=== PATIENT | female | born 1965 | race Caucasian/White ===

== ENCOUNTER → 2018-09-02 | Outpatient (CLI) | payer MEDICAID ==
--- NOTE | 2018-09-16 11:47 | MR ---
EXAMINATION TYPE: MR knee LT wo con DATE OF EXAM: 09/02/2018 COMPARISON: Outside MRI April 26, 2016. HISTORY: Pain in left knee / Effusion/ primary osteoarthritis /possible bucket-handle medial menisca l tear all per order. Pain and locking and swelling for 2 to 3 years after injury per patient. TECHNIQUE: Multiplanar, multisequence images of the knee is performed without IV contrast. FINDINGS: Exam noted suboptimal due to patient's large body habitus MEDIAL MENISCUS: Anterior horn is intact without tear. Posterior horn is truncated with abnormal vert ical and oblique signal sagittal image 25, findings consistent with full-thickness tear with progress ion from prior MRI LATERAL MENISCUS: Anterior and posterior horns are intact without tear. CRUCIATE LIGAMENTS: The posterior cruciate ligament is intact and unremarkable. Anterior cruciate lig ament shows marked increased signal and thickening versus prior study. COLLATERAL LIGAMENTS: The medial collateral ligament and lateral collateral ligament complex are inta ct and unremarkable. EXTENSOR MECHANISM: Visualized quadriceps and patellar tendons are intact. EFFUSION: There is small to moderate suprapatellar joint effusion increased in size from prior. POPLITEAL CYST: No popliteal/bobby cyst. TRICOMPARTMENT SPACES: Significant degenerative change patellofemoral compartment is redemonstrated a s there is advanced narrowing with mild to moderate spurring and moderate reactive subchondral cystic change. There is moderate narrowing and mild to moderate spurring medial tibiofemoral compartment. CARTILAGE: Full-thickness chondromalacia patella is noted. There is narrowing of articular cartilage medial tibiofemoral compartment BONE MARROW SIGNAL: No focal abnormal marrow signal is appreciated. OTHER: No additional significant abnormality is appreciated. IMPRESSION: 1. Interval progression or or prominent full-thickness tear posterior horn of medial meniscus. 2. Advanced patellofemoral compartment degenerative changes redemonstrated with slight interval progr ession. 3. 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 Small to moderate size suprapatellar joint effusion increased from prior. 5. Moderate degenerative changes medial tibiofemoral compartment increased from prior presumed produc t of osteoarthritis.
== END | disposition home or self-care (01) ==
LOC: RADMRIMAIN 07:34
PROVIDERS: ATTEND Orthopaedic Surgery Sports Medicine
DX: M17.12 Unilateral primary osteoarthritis, left knee (principal); S83.232A Complex tear of medial meniscus, current injury, left knee, initial encounter

== ENCOUNTER → 2020-05-12 | Outpatient (CLI) | payer MEDICAID | END | disposition home or self-care (01) | LOC: LABWHC1 13:23 | PROVIDERS: ATTEND Pediatrics Pediatric Infectious Diseases | DX: Z11.59 Encounter for screening for other viral diseases (principal) | CPT/HCPCS: U0003; C9803 ==

== ENCOUNTER 2020-08-16 01:08 | Emergency (ER) | payer MEDICAID ==
[2020-08-16] MEDS ORDERED: SODIUM CHLORIDE 0.9% 1,000 ML IV STA (01:12)
[2020-08-16] MEDS ORDERED: MORPHINE SULFATE 4 MG/ML SYRINGE IVP STA (01:16)
[2020-08-16] MEDS ORDERED: ONDANSETRON 4 MG/2 ML VIAL IVP STA (01:16)
[2020-08-16 01:18] VITALS: RESP 18; TEMP 98.7
[2020-08-16 01:33] LABS: Basophils # (A) 0.1 k/uL (0-0.2); Basophils % (A) 1 %; Eosinophils # (A) 0.3 k/uL (0-0.7); Eosinophils % (A) 4 %; HCT 43.1 % (34.0-46.0); HGB 13.8 gm/dL (11.4-16.0); Lymphocytes # (A) 1.7 k/uL (1.0-4.8); Lymphocytes % (A) 19 %; MCH 30.7 pg (25.0-35.0); MCV 95.8 fL (80.0-100.0); Mean Platelet Volume 7.6; Monocytes # (A) 0.5 k/uL (0-1.0); Monocytes % (A) 5 %; Neutrophils # (A) 6.3 k/uL (1.3-7.7); Neutrophils % (A) 71 %; Platelet Count 323 k/uL (150-450); RDW 13.3 % (11.5-15.5); WBC 8.9 k/uL (3.8-10.6)
[2020-08-16 01:42] LABS: ALT 14 U/L (4-34); AST 20 U/L (14-36); African American GFR (CKD) >90 (>60 ml/min/1.73 sqM); Albumin 3.8 g/dL (3.5-5.0); Alkaline Phosphatase 81 U/L (38-126); Anion Gap 7 mmol/L; Blood Urea Nitrogen 10 mg/dL (7-17); Calcium 9.2 mg/dL (8.4-10.2); Carbon Dioxide 23 mmol/L (22-30); Chloride 107 mmol/L (98-107); Glucose 140 mg/dL (74-99); Non-African American GFR(CKD) 89 (>60 ml/min/1.73 sqM); Potassium 4.1 mmol/L (3.5-5.1); Sodium 137 mmol/L (137-145); Total Bilirubin 0.4 mg/dL (0.2-1.3); Total Protein 7.3 g/dL (6.3-8.2)
--- NOTE | 2020-08-16 02:01 | ED ---
Abdominal Pain HPI - General Stated Complaint: abd pain Time Seen by Provider: 08/16/20 01:11 Source: patient, EMS Mode of arrival: EMS Limitations: no limitations - History of Present Illness Initial Comments: Stacy is a pleasant 54-year-old female with a history of diverticulitis which was treated approximately 10 years ago, she reports she had a colonoscopy 3-4 years ago with an incidental diverticulosis without diverticulitis at that time. She presents to the ER today with complaint of 3 days of progressively worsening left-sided abdominal pain similar previous episode of diverticulitis. Patient reports the pain began 2 days ago she thought it would go away however y day became quite severe, she attempted to contact her primary care provider to start antibiotics which treated her diverticulitis last time however was not successful as it was the weekend. Tonight the pain became unbearable which prompted her call EMS for transport to the hospital for further management. Patient reports left-sided abdominal pain, decreased appetite, decreased oral intake. No lower urinary tract symptoms. - Related Data Previous Rx's Medication Instructions Recorded Amoxic-Pot Clav 875-125Mg 1 tab PO BID 7 Days #14 tab 08/16/20 [Augmentin 875-125] Allergies Allergy/AdvReac Type Severity Reaction Status Date / Time hydrocodone Allergy Nausea & Verified 08/16/20 01:28 Vomiting & Diarrhea Review of Systems ROS Statement: Those systems with pertinent positive or pertinent negative responses have been documented in the HPI. ROS Other: All systems not noted in ROS Statement are negative. Past Medical History Additional Past Medical History / Comment(s): Diverticulitis 2010 History of Any Multi-Drug Resistant Organisms: None Reported Past Psychological History: No Psychological Hx Reported Smoking Status: Never smoker Past Alcohol Use History: Occasional Past Drug Use History: None Reported General Exam - General Exam Comments Initial Comments: Physical Exam GENERAL: Patient is well-developed and well-nourished. Appears uncomfortable HENT: Normocephalic, Atraumatic. EYES: PERRL, EOMI PULMONARY: Unlabored respirations. CARDIOVASCULAR: RRR ABDOMEN: Non-distended Non-peritoneal Tenderness to palpation left lower quadrant SKIN: No rashes or bruising : Deferred NEUROLOGIC: Alert and oriented Normal speech MUSCULOSKELETAL: Moving all extremities with no apparent injury PSYCHIATRIC: No SI/HI Limitations: no limitations Course Vital Signs 10/26/20 01:14 Temperature 98.7 F Pulse Rate 70 Respiratory 18 Rate Blood Pressure 124/88 O2 Sat by Pulse 96 Oximetry Medical Decision Making - Medical Decision Making She was seen and evaluated, history was obtained from the patient examined history and physical exam are concerning for recurrent diverticulitis Labs and computed tomography scan were ordered Patient states she's had a uterine ablation note possibility of Morphine and Zofran were ordered for discomfort Labs are relatively unremarkable CT scan confirms a simple sigmoid diverticulitis, patient's comfortable with the plan for outpatient management with oral antibiotics and pain medications. Patient is previously been treated with Cipro and Flagyl 10 years ago however is agreeable to Augmentin. Patient be given a Tylenol 3 starter pack. Provided a work note for later today and advised to follow with her primary care physician by the end of the week. Post return parameters and need for follow-up with GI outpatient was discussed with the patient will questions pertaining care were answered patient was discharged home in stable condition - Lab Data Result diagrams: 08/16/20 01:25 08/16/20 01:25 Lab Results 08/16/20 08/16/20 08/16/20 Range/Units 01:25 01:25 02:10 WBC 8.9 (3.8-10.6) k/uL RBC 4.50 (3.80-5.40) m/uL Hgb 13.8 (11.4-16.0) gm/dL Hct 43.1 (34.0-46.0) % MCV 95.8 (80.0-100.0) fL MCH 30.7 (25.0-35.0) pg MCHC 32.0 (31.0-37.0) g/dL RDW 13.3 (11.5-15.5) % Plt Count 323 (150-450) k/uL Neutrophils % 71 % Lymphocytes % 19 % Monocytes % 5 % Eosinophils % 4 % Basophils % 1 % Neutrophils # 6.3 (1.3-7.7) k/uL Lymphocytes # 1.7 (1.0-4.8) k/uL Monocytes # 0.5 (0-1.0) k/uL Eosinophils # 0.3 (0-0.7) k/uL Basophils # 0.1 (0-0.2) k/uL Sodium 137 (137-145) mmol/L Potassium 4.1 (3.5-5.1) mmol/L Chloride 107 (98-107) mmol/L Carbon Dioxide 23 (22-30) mmol/L Anion Gap 7 mmol/L BUN 10 (7-17) mg/dL Creatinine 0.77 (0.52-1.04) mg/dL Est GFR (CKD-EPI)AfAm >90 (>60 ml/min/1.73 sqM) Est GFR (CKD-EPI)NonAf 89 (>60 ml/min/1.73 sqM) Glucose 140 H (74-99) mg/dL Calcium 9.2 (8.4-10.2) mg/dL Total Bilirubin 0.4 (0.2-1.3) mg/dL AST 20 (14-36) U/L ALT 14 (4-34) U/L Alkaline Phosphatase 81 (38-126) U/L Total Protein 7.3 (6.3-8.2) g/dL Albumin 3.8 (3.5-5.0) g/dL Lipase 174 (23-300) U/L Urine Color Yellow Urine Appearance Clear (Clear) Urine pH 5.5 (5.0-8.0) Ur Specific [place] 1.044 H (1.001-1.035) Urine Protein Negative (Negative) Urine Glucose (UA) Negative (Negative) Urine Ketones Negative (Negative) Urine Blood Negative (Negative) Urine Nitrite Negative (Negative) Urine Bilirubin Negative (Negative) Urine Urobilinogen <2.0 (<2.0) mg/dL Ur Leukocyte Esterase Negative (Negative) Disposition Clinical Impression: Sigmoid diverticulitis Disposition: HOME SELF-CARE Condition: Stable Prescriptions: Amoxic-Pot Clav 875-125Mg [Augmentin 875-125] 1 tab PO BID 7 Days #14 tab Is patient prescribed a controlled substance at d/c from ED?: No Referrals: Amanda Gonzalez MD [Primary Care Provider] - 1-2 days Jaskaran Ramirez MD [STAFF PHYSICIAN] - 1-2 days
[2020-08-16 02:18] LABS: Appearance,Urine Clear (Clear); Bilirubin,Urine Negative (Negative); Blood,Urine Negative (Negative); Color,Urine Yellow; Glucose,Urine (UA) Negative (Negative); Ketones,Urine Negative (Negative); Leukocyte Esterase,Urine Negative (Negative); Nitrite,Urine Negative (Negative); PH, Urine 5.5 (5.0-8.0); Protein,Urine Negative (Negative); Specific Gravity,Urine 1.044 (1.001-1.035); Urobilinogen,Urine <2.0 mg/dL (<2.0)
--- NOTE | 2020-08-16 02:21 | CT ---
EXAM: CT Abdomen and Pelvis With Intravenous Contrast CLINICAL HISTORY: ITS.REASON CT Reason: diverticulitis TECHNIQUE: Axial computed tomography images of the abdomen and pelvis with intravenous contrast. CTDI is 73.07 mGy and DLP is 3110.40 mGy-cm. This CT exam was performed using one or more of the following dose reduction techniques: automated exposure control, adjustment of the mA and/or kV according to patient size, and/or use of iterative reconstruction technique. COMPARISON: No relevant prior studies available. FINDINGS: ABDOMEN: Liver: Hepatomegaly. Gallbladder and bile ducts: Cholecystectomy. No ductal dilation. Pancreas: Unremarkable. No mass. No ductal dilation. Spleen: Calcified splenic granulomas. Adrenals: Unremarkable. No mass. Kidneys and ureters: Unremarkable. No solid mass. No hydronephrosis. Stomach and bowel: Colonic diverticulosis. Pericolonic stranding with some luminal narrowing proximal sigmoid colon. No obstruction. No mucosal thickening. PELVIS: Appendix: No findings to suggest acute appendicitis. Bladder: Unremarkable. No mass. Reproductive: Small cyst/dominant follicle in the right ovary. ABDOMEN and PELVIS: Intraperitoneal space: Unremarkable. No free air. No significant fluid collection. Bones/joints: No acute fracture. No dislocation. Soft tissues: Umbilical hernia containing fat. Vasculature: Unremarkable. No abdominal aortic aneurysm. Lymph nodes: Unremarkable. No enlarged lymph nodes. IMPRESSION: Uncomplicated sigmoid diverticulitis.
[2020-08-16] MEDS ORDERED: AMOXIC-POT CLAV 875MG STARTER PACK 2 TAB BTL PO STA (02:32)
[2020-08-16] MEDS ORDERED: ACET/COD 300 MG/30 MG STARTER PACK 6 TAB BTL PO STA (02:43)
[2020-08-16 03:09] VITALS: BP 119/77; PULSE 74
== END 2020-08-16 03:09 | disposition home or self-care (01) ==
LOC: EC 01:08
DX: K57.32 Diverticulitis of large intestine without perforation or abscess without bleeding (principal); Z88.5 Allergy status to narcotic agent
CPT/HCPCS: 36415; 80053; 83690; 85025; 81003; 87040; 74177; 99284; 96374; 96375; 96361; J2270; J2405; Q9967

== ENCOUNTER → 2020-10-29 | Outpatient (CLI) | payer OTHER ==
--- NOTE | 2020-10-29 16:28 | XR ---
EXAMINATION TYPE: XR foot complete LT DATE OF EXAM: 10/29/2020 CLINICAL HISTORY: Left foot pain worsen in great toe after injury. TECHNIQUE: Frontal, lateral, and oblique images of the left foot are obtained. COMPARISON: None FINDINGS: There is no acute fracture/dislocation evident in the left foot. Moderate narrowing and sp urring first metatarsal phalangeal joint. Moderate to large size inferior calcaneal spur. Mild to mo derate spurring midfoot level along dorsal surface on lateral view. Mild diffuse subcutaneous edema . IMPRESSION: There is no acute fracture or dislocation in the left foot.
== END | disposition home or self-care (01) ==
LOC: RAD 16:11
PROVIDERS: ATTEND Emergency Medicine
DX: S90.32XA Contusion of left foot, initial encounter (principal); S91.203A Unspecified open wound of unspecified great toe with damage to nail, initial encounter

== ENCOUNTER → 2021-09-27 | Outpatient (CLI) | payer MEDICAID, OTHER | END | disposition home or self-care (01) | LOC: LABWHC1 14:43 | PROVIDERS: ATTEND Emergency Medicine | DX: Z20.822 Contact with and (suspected) exposure to COVID-19 (principal) | CPT/HCPCS: 87635 ==

== ENCOUNTER → 2021-09-28 | Outpatient (CLI) | payer MEDICAID, OTHER | END | disposition home or self-care (01) | LOC: LABMAIN 15:47 | PROVIDERS: ATTEND Emergency Medicine | DX: Z20.822 Contact with and (suspected) exposure to COVID-19 (principal) | CPT/HCPCS: 87635 ==

== ENCOUNTER 2022-04-12 04:34 | Inpatient (IN) | payer MEDICAID ==
[2022-04-12] MEDS ORDERED: ONDANSETRON ODT 4 MG TAB PO STA (06:25)
[2022-04-12] MEDS ORDERED: ACETAMINOPHEN TAB 500 MG TAB PO STA (06:25)
[2022-04-12 06:46] LABS: Appearance,Urine Clear (Clear); Bilirubin,Urine Negative (Negative); Blood,Urine Negative (Negative); Color,Urine Yellow; Glucose,Urine (UA) Negative (Negative); Ketones,Urine Negative (Negative); Leukocyte Esterase,Urine Negative (Negative); Nitrite,Urine Negative (Negative); PH, Urine 5.5 (5.0-8.0); Protein,Urine Trace (Negative); Specific Gravity,Urine 1.023 (1.001-1.035); Urobilinogen,Urine <2.0 mg/dL (<2.0)
[2022-04-12 06:47] LABS: Basophils # (A) 0.1 k/uL (0-0.2); Basophils % (A) 0 %; Eosinophils # (A) 0.1 k/uL (0-0.7); Eosinophils % (A) 1 %; HCT 42.7 % (34.0-46.0); Lymphocytes # (A) 1.3 k/uL (1.0-4.8); Lymphocytes % (A) 10 %; MCH 30.9 pg (25.0-35.0); MCHC 32.9 g/dL (31.0-37.0); Mean Platelet Volume 7.3; Monocytes # (A) 0.6 k/uL (0-1.0); Monocytes % (A) 5 %; Neutrophils # (A) 10.9 k/uL (1.3-7.7); Neutrophils % (A) 84 %; Platelet Count 323 k/uL (150-450); RBC 4.54 m/uL (3.80-5.40); RDW 13.7 % (11.5-15.5)
[2022-04-12 06:59] LABS: ALT 16 U/L (4-34); AST 18 U/L (14-36); African American GFR (CKD) >90 (>60 ml/min/1.73 sqM); Albumin 4.3 g/dL (3.5-5.0); Alkaline Phosphatase 91 U/L (38-126); Amylase 65 U/L (30-110); Anion Gap 9 mmol/L; Blood Urea Nitrogen 14 mg/dL (7-17); Calcium 9.3 mg/dL (8.4-10.2); Carbon Dioxide 23 mmol/L (22-30); Chloride 103 mmol/L (98-107); Glucose 136 mg/dL (74-99); Lipase 88 U/L (23-300); Non-African American GFR(CKD) >90 (>60 ml/min/1.73 sqM); Potassium 4.6 mmol/L (3.5-5.1); Sodium 135 mmol/L (137-145); Total Bilirubin 0.4 mg/dL (0.2-1.3); Total Protein 7.8 g/dL (6.3-8.2)
--- NOTE | 2022-04-12 07:14 | CT ---
EXAM: CT Abdomen and Pelvis Without Intravenous Contrast CLINICAL HISTORY: ITS.REASON CT Reason: abdominal pain, diverticulitis hx TECHNIQUE: Axial computed tomography images of the abdomen and pelvis without intravenous contrast. CTDI is 33.627 mGy and DLP is 2038.2 mGy-cm. This CT exam was performed using one or more of the following dose reduction techniques: automated exposure control, adjustment of the mA and/or kV according to patient size, and/or use of iterative reconstruction technique. COMPARISON: No relevant prior studies available. FINDINGS: Lung bases: Unremarkable. No mass. No consolidation. ABDOMEN: Liver: Hepatic steatosis. Gallbladder and bile ducts: Cholecystectomy. No ductal dilation. Pancreas: Unremarkable. No ductal dilation. Spleen: Small calcified splenic granulomas. Adrenals: Unremarkable. No mass. Kidneys and ureters: No hydronephrosis or nephrolithiasis. Stomach and bowel: Positive for sigmoid diverticulitis, consisting of moderate peridiverticular inflammation, with mild wall thickening of the involved sigmoid colon. No perforation or abscess. No free intraperitoneal air. Surgical evaluation recommended. Given the patient's age, follow-up colonoscopy recommended following treatment/resolution. No obstruction. PELVIS: Appendix: No findings to suggest acute appendicitis. Bladder: Decompressed urinary bladder. No stones. Reproductive: Bilateral ovarian follicles. ABDOMEN and PELVIS: Intraperitoneal space: Unremarkable. No free air. No significant fluid collection. Bones/joints: No acute fracture. No dislocation. Soft tissues: Unremarkable. Vasculature: Unremarkable. No abdominal aortic aneurysm. Lymph nodes: Unremarkable. No enlarged lymph nodes. IMPRESSION: 1. Positive for sigmoid diverticulitis, consisting of moderate peridiverticular inflammation, with mild wall thickening of the involved sigmoid colon. No perforation or abscess. No free intraperitoneal air. Surgical evaluation recommended. Given the patient's age, follow-up colonoscopy recommended following treatment/resolution. 2. Hepatic steatosis. Cholecystectomy. 3. No hydronephrosis or nephrolithiasis.
--- NOTE | 2022-04-12 09:49 | ED ---
Abdominal Pain HPI - General Chief Complaint: Abdominal Pain Stated Complaint: Abd Pain Time Seen by Provider: 04/12/22 09:08 Source: patient Mode of arrival: ambulatory - History of Present Illness Initial Comments: 56-year-old female with past mental history of diverticulitis presents to the emergency department with right lower quadrant pain. States that she recently had diverticulitis 3 weeks ago and finished an entire course of Augmentin. This is her third recent bout of diverticulitis. Yesterday she began having recurrent pain in the right lower quadrant that felt very similar to her diverticulitis pain. She denies any issues with her bowel or bladder function. No fevers. She took some Motrin at home however pain was uncontrolled and therefore she came into the emergency department. She has not seen GI or surgeon. Follows with Dr. Gonzalez for her diverticulitis. Last colonoscopy was 4 years ago. No other alleviating, precipitating or modifying factors - Related Data Home Medications Medication Instructions Recorded Confirmed Calcium Carbonate [Calcium] 600 mg PO DAILY 04/12/22 04/12/22 Cholecalciferol [Vitamin D3 (25 25 mcg PO DAILY 04/12/22 04/12/22 Mcg = 1000 Iu)] Citalopram Hydrobromide [CeleXA] 10 mg PO DAILY 04/12/22 04/12/22 Fluticasone Nasal [place] [Flonase 1 spray EA NOSTRIL DAILY PRN 04/12/22 04/12/22 Nasal [place]] Ibuprofen [Motrin Ib] 800 mg PO Q8H PRN 04/12/22 04/12/22 Levothyroxine Sodium [Synthroid] 50 mcg PO DAILY 04/12/22 04/12/22 Multivitamins, Thera [Multivitamin 1 tab PO DAILY 04/12/22 04/12/22 (formulary)] [place] Xl 1 tab PO DAILY 04/12/22 04/12/22 Omeprazole 40 mg PO DAILY 04/12/22 04/12/22 Ondansetron [Zofran] 4 mg PO Q12HR PRN 04/12/22 04/12/22 Previous Rx's Medication Instructions Recorded Acetaminophen Tab [Tylenol] 1,000 mg PO Q6HR tab 04/17/22 Fluconazole [Diflucan] 150 mg PO ONCE 1 Days #1 tab 04/17/22 Miconazole Nitrate [Monistat 3 200 mg VAGINAL HS 3 Days #3 04/17/22 Vaginal] suppositor Ondansetron Odt [Zofran Odt] 4 mg PO Q8HR PRN #30 tab 04/17/22 Pantoprazole [Protonix] 40 mg PO DAILY 30 Days #30 tab 04/17/22 cefUROXime axetiL [Ceftin] 500 mg PO BID 10 Days #20 tab 04/17/22 metroNIDAZOLE [Flagyl] 500 mg PO TID 10 Days #30 tab 04/17/22 Allergies Allergy/AdvReac Type Severity Reaction Status Date / Time acetaminophen [From Vicodin] AdvReac Nausea & Verified 04/12/22 11:28 Vomiting & Diarrhea hydrocodone [From Vicodin] AdvReac Nausea & Verified 04/12/22 11:28 Vomiting & Diarrhea Review of Systems ROS Statement: Those systems with pertinent positive or pertinent negative responses have been documented in the HPI. ROS Other: All systems not noted in ROS Statement are negative. Past Medical History Additional Past Medical History / Comment(s): Diverticulitis 2010 History of Any Multi-Drug Resistant Organisms: None Reported Past Surgical History: No Surgical Hx Reported Past Psychological History: No Psychological Hx Reported Smoking Status: Never smoker Past Alcohol Use History: Occasional Past Drug Use History: None Reported General Exam General appearance: alert, in no apparent distress Head exam: Present: atraumatic, normocephalic, normal inspection Eye exam: Present: normal appearance, PERRL, EOMI. Absent: scleral icterus, conjunctival injection, periorbital swelling ENT exam: Present: normal exam, mucous membranes moist Neck exam: Present: normal inspection. Absent: tenderness, meningismus, lymph adenopathy Respiratory exam: Present: normal lung sounds bilaterally. Absent: respiratory distress, wheezes, rales, rhonchi, stridor Cardiovascular Exam: Present: regular rate, normal rhythm, normal heart sounds. Absent: systolic murmur, diastolic murmur, rubs, gallop, clicks GI/Abdominal exam: Present: soft, tenderness, normal bowel sounds. Absent: distended, guarding, rebound, rigid Extremities exam: Present: normal inspection, full ROM, normal capillary refill. Absent: tenderness, pedal edema, joint swelling, calf tenderness Back exam: Present: normal inspection Neurological exam: Present: alert, oriented X3, CN II-XII intact Psychiatric exam: Present: normal affect, normal mood Skin exam: Present: warm, dry, intact, normal color. Absent: rash Course Vital Signs 04/12/22 04/12/22 06:21 11:17 Temperature 97.9 F 97.7 F Pulse Rate 87 Pulse Rate [ 84 Radial] Respiratory 18 20 Rate Blood Pressure 154/90 Blood Pressure 117/79 [Right Arm] O2 Sat by Pulse 96 95 Oximetry Medical Decision Making - Medical Decision Making Upon arrival patient was placed into room 9. Thorough history and physical exam was performed. Labs and imaging had artery been performed from the emergency room in waiting room. Laboratory studies are reviewed. White count of 13. CT does demonstrate diverticulitis of the sigmoid colon with moderate amount of surrounding inflammation. As the patient has failed outpatient treatment I did recommend admission. Patient is placed on Rocephin and Flagyl. I spoke with Dr. Hawkins who agreed to admit the patient - Lab Data Result diagrams: 04/17/22 06:22 04/17/22 06:22 Lab Results 04/12/22 04/12/22 04/12/22 Range/Units 06:34 06:34 06:36 WBC 13.0 H (3.8-10.6) k/uL RBC 4.54 (3.80-5.40) m/uL Hgb 14.0 (11.4-16.0) gm/dL Hct 42.7 (34.0-46.0) % MCV 94.0 (80.0-100.0) fL MCH 30.9 (25.0-35.0) pg MCHC 32.9 (31.0-37.0) g/dL RDW 13.7 (11.5-15.5) % Plt Count 323 (150-450) k/uL MPV 7.3 Neutrophils % 84 % Lymphocytes % 10 % Monocytes % 5 % Eosinophils % 1 % Basophils % 0 % Neutrophils # 10.9 H (1.3-7.7) k/uL Lymphocytes # 1.3 (1.0-4.8) k/uL Monocytes # 0.6 (0-1.0) k/uL Eosinophils # 0.1 (0-0.7) k/uL Basophils # 0.1 (0-0.2) k/uL Sodium 135 L (137-145) mmol/L Potassium 4.6 (3.5-5.1) mmol/L Chloride 103 (98-107) mmol/L Carbon Dioxide 23 (22-30) mmol/L Anion Gap 9 mmol/L BUN 14 (7-17) mg/dL Creatinine 0.75 (0.52-1.04) mg/dL Est GFR (CKD-EPI)AfAm >90 (>60 ml/min/1.73 sqM) Est GFR (CKD-EPI)NonAf >90 (>60 ml/min/1.73 sqM) Glucose 136 H (74-99) mg/dL Calcium 9.3 (8.4-10.2) mg/dL Total Bilirubin 0.4 (0.2-1.3) mg/dL AST 18 (14-36) U/L ALT 16 (4-34) U/L Alkaline Phosphatase 91 (38-126) U/L Total Protein 7.8 (6.3-8.2) g/dL Albumin 4.3 (3.5-5.0) g/dL Amylase 65 (30-110) U/L Lipase 88 (23-300) U/L Urine Color Yellow Urine Appearance Clear (Clear) Urine pH 5.5 (5.0-8.0) Ur Specific [place] 1.023 (1.001-1.035) Urine Protein Trace H (Negative) Urine Glucose (UA) Negative (Negative) Urine Ketones Negative (Negative) Urine Blood Negative (Negative) Urine Nitrite Negative (Negative) Urine Bilirubin Negative (Negative) Urine Urobilinogen <2.0 (<2.0) mg/dL Ur Leukocyte Esterase Negative (Negative) Disposition Clinical Impression: Abdominal pain, Diverticulitis, Failure of outpatient treatment Disposition: ADMITTED IP TO THIS [facility] Condition: Stable Is patient prescribed a controlled substance at d/c from ED?: No Time of Disposition: 09:53 Decision to Admit Reason: Admit from EC Decision Date: 04/12/22 Decision Time: 09:53
[2022-04-12] MEDS ORDERED: MORPHINE SULFATE 4 MG/ML SYRINGE IVP STA (09:50)
[2022-04-12] MEDS ORDERED: cefTRIAXone IN SWFI 1,000 MG/10 ML SYRINGE IVP STA (09:51)
[2022-04-12] MEDS ORDERED: MORPHINE SULFATE 4 MG/ML SYRINGE IV PRN (09:53)
[2022-04-12] MEDS ORDERED: NALOXONE 0.4 MG/ML 1 ML VIAL IV PRN (09:53)
[2022-04-12] MEDS ORDERED: metroNIDAZOLE-NS PMX 500 MG in SALINE 1 100ML.BAG IVPB STA (09:55)
[2022-04-12] MEDS: SODIUM CHLORIDE 0.9% 1,000 ML IV SCH (10:13)
[2022-04-12] MEDS: LEVOTHYROXINE 50 MCG TAB PO SCH (12:07)
[2022-04-12] MEDS: CITALOPRAM HYDROBROMIDE 10 MG TAB PO SCH (12:07)
[2022-04-12] MEDS: PANTOPRAZOLE 40 MG TABLET PO SCH (12:07)
[2022-04-12] MEDS: ACETAMINOPHEN TAB 500 MG TAB PO PRN (12:07)
[2022-04-12] MEDS ORDERED: FLUTICASONE 50MCG/SPRAY NASAL 16GM EA NOSTRIL PRN (13:18)
[2022-04-12] MEDS: PIPERACILLIN-TAZOBACTAM 3.375 GM in SODIUM CHLORIDE 0.9% 100 ML IVPB SCH (13:43)
--- NOTE | 2022-04-12 14:16 | P.GSCN ---
History of Present Illness Consult date: 04/12/22 History of present illness: CHIEF COMPLAINT: Abdominal pain HISTORY OF PRESENT ILLNESS: This is a 56-year-old female who presented to hospital with complaints of right lower quadrant and suprapubic abdominal pain. Patient reports that she's had similar symptoms about 3 weeks ago and was treated treated for diverticulitis with a course of Augmentin. She had also bee n previously treated this past fall. And last year she also had 2 episodes of diverticulitis. Her last colonoscopy was 4 years ago revealing diverticulosis. Patient reports that her pain is constant and achy. Initially on presentation she was rating her pain about 8 out of 10. She denies any fevers. Denies any nausea or vomiting. She denies any cardiac history. Past surgical history includes open cholecystectomy with reconstructive biliary tree surgery at the age of 22 which was done at [facility], [place]. She had a computed tomography scan of the abdomen and pelvis with contrast done today that demonstrated sigmoid diverticulitis consisting of moderate peridiverticular inflammation with mild wall thickening of the involved sigmoid colon. No perforation or abscess. No free intraperitoneal air. Cholecystectomy. Hepatic steatosis. No hydronephrosis or nephrolithiasis. Patient's white count was elevated. She is on IV antibiotics. Her pain is currently controlled. She is currently tolerating clear liquids. PAST MEDICAL HISTORY: Hypothyroidism, depression PAST SURGICAL HISTORY: See list. MEDICATIONS: See list. ALLERGIES: See list. SOCIAL HISTORY: No illicit drug use. REVIEW OF SYSTEMS: CONSTITUTIONAL: Denies fever or chills. HEENT: Denies blurred vision, vision changes, or eye pain. Denies hemoptysis ENDOCRINE: Denies heat or cold intolerance. CARDIOVASCULAR: Denies chest pain or pressure. RESPIRATORY: No shortness of breath. GASTROINTESTINAL: Denies nausea or vomiting. NEURO: Denies history of seizures. PSYCH: No depression or suicidal ideation HEMATOLOGIC: Denies bleeding disorders. LYMPHATIC: The patient denies any lumps and bumps around the neck. GENITOURINARY: Denies any blood in urine or increased urinary frequency. MUSCULOSKELETAL: Denies myalgias. Denies joint swelling. Denies decreased range of motion beyond patients baseline. SKIN: Denies pruitis. Denies rash. PHYSICAL EXAM: VITAL SIGNS: Reviewed GENERAL: Well-developed in no acute distress. HEENT: No sclera icterus. Extraocular movements grossly intact. Moist buccal mucosa. Head is atraumatic, normocephalic. Hears conversational speech. No nasal drainage. NECK: Supple without lymphadenopathy. CHEST: Non-labored respirations and equal bilateral excursions. CARDIOVASCULAR: Palpable 2+ radial pulses. ABDOMEN: Soft. Nondistended. Tenderness to palpation of the right lower quadrant and suprapubic area MUSCULOSKELETAL: No clubbing or cyanosis. NEUROLOGIC: No focal or lateralizing signs. Cranial nerves II through XII grossly intact. PSYCH: Appropriate affect. Alert and oriented to person, place and time. SKIN: Well perfused. Good skin turgor. LABORATORY DATA: WBC is 13 Hgb is 14 platelets 323 Sodium is 135 potassium is 4.6 creatinine 0.75 LFTs normal Lipase 88 Urinalysis negative for infection IMAGING: Computed tomography scan findings as stated above ASSESSMENT: 1. Acute sigmoid diverticulitis 2. Recurrent episodes of diverticulitis 3. Leukocytosis PLAN: -Consult infectious disease service due to recurrent episodes of diverticulitis -Continue IV antibiotics in the form of Zosyn and Flagyl -Okay for clear liquids -Continue IV fluids -Continue to monitor CBC -Continue supportive care -Further recommendations forthcoming per surgeon Thank you for this consultation Physician [employer] Research [employer] Director note has been reviewed by physician. Signing provider agrees with the documented findings, assessment, and plan of care. Past Medical History Additional Past Medical History / Comment(s): Diverticulitis 2010, pyleonephritis bilateral, COVID History of Any Multi-Drug Resistant Organisms: None Reported Past Surgical History: Cholecystectomy Past Anesthesia/Blood Transfusion Reactions: No Reported Reaction Past Psychological History: Anxiety, Depression Smoking Status: Never smoker Past Alcohol Use History: Occasional Past Drug Use History: None Reported Medications and Allergies Home Medications Medication Instructions Recorded Confirmed Type Calcium Carbonate [Calcium] 600 mg PO DAILY 04/12/22 04/12/22 History Cholecalciferol [Vitamin D3 (25 25 mcg PO DAILY 04/12/22 04/12/22 History Mcg = 1000 Iu)] Citalopram Hydrobromide [CeleXA] 10 mg PO DAILY 04/12/22 04/12/22 History Fluticasone Nasal [place] [Flonase 1 spray EA NOSTRIL DAILY PRN 04/12/22 04/12/22 History Nasal [place]] Ibuprofen [Motrin Ib] 800 mg PO Q8H PRN 04/12/22 04/12/22 History Levothyroxine Sodium [Synthroid] 50 mcg PO DAILY 04/12/22 04/12/22 History Multivitamins, Thera [Multivitamin 1 tab PO DAILY 04/12/22 04/12/22 History (formulary)] [place] Xl 1 tab PO DAILY 04/12/22 04/12/22 History Omeprazole 40 mg PO DAILY 04/12/22 04/12/22 History Ondansetron [Zofran] 4 mg PO Q12HR PRN 04/12/22 04/12/22 History Allergies Allergy/AdvReac Type Severity Reaction Status Date / Time acetaminophen [From Vicodin] AdvReac Nausea & Verified 04/12/22 11:28 Vomiting & Diarrhea hydrocodone [From Vicodin] AdvReac Nausea & Verified 04/12/22 11:28 Vomiting & Diarrhea Surgical - Exam Vital Signs Temp Pulse Resp BP Pulse Ox 97.9 F 87 18 154/90 96 04/12/22 06:21 04/12/22 06:21 04/12/22 06:21 04/12/22 06:21 04/12/22 06:21 Results - Labs 04/12/22 06:34 04/12/22 06:34 Abnormal Lab Results - Last 24 Hours (Table) 04/12/22 04/12/22 04/12/22 Range/Units 06:34 06:34 06:36 WBC 13.0 H (3.8-10.6) k/uL Neutrophils # 10.9 H (1.3-7.7) k/uL Sodium 135 L (137-145) mmol/L Glucose 136 H (74-99) mg/dL Urine Protein Trace H (Negative) Diabetes panel 04/12/22 Range/Units 06:34 Sodium 135 L (137-145) mmol/L Potassium 4.6 (3.5-5.1) mmol/L Chloride 103 (98-107) mmol/L Carbon Dioxide 23 (22-30) mmol/L BUN 14 (7-17) mg/dL Creatinine 0.75 (0.52-1.04) mg/dL Glucose 136 H (74-99) mg/dL Calcium 9.3 (8.4-10.2) mg/dL AST 18 (14-36) U/L ALT 16 (4-34) U/L Alkaline Phosphatase 91 (38-126) U/L Total Protein 7.8 (6.3-8.2) g/dL Albumin 4.3 (3.5-5.0) g/dL Calcium panel 04/12/22 Range/Units 06:34 Calcium 9.3 (8.4-10.2) mg/dL Albumin 4.3 (3.5-5.0) g/dL Pituitary panel 04/12/22 Range/Units 06:34 Sodium 135 L (137-145) mmol/L Potassium 4.6 (3.5-5.1) mmol/L Chloride 103 (98-107) mmol/L Carbon Dioxide 23 (22-30) mmol/L BUN 14 (7-17) mg/dL Creatinine 0.75 (0.52-1.04) mg/dL Glucose 136 H (74-99) mg/dL Calcium 9.3 (8.4-10.2) mg/dL Adrenal panel 04/12/22 Range/Units 06:34 Sodium 135 L (137-145) mmol/L Potassium 4.6 (3.5-5.1) mmol/L Chloride 103 (98-107) mmol/L Carbon Dioxide 23 (22-30) mmol/L BUN 14 (7-17) mg/dL Creatinine 0.75 (0.52-1.04) mg/dL Glucose 136 H (74-99) mg/dL Calcium 9.3 (8.4-10.2) mg/dL Total Bilirubin 0.4 (0.2-1.3) mg/dL AST 18 (14-36) U/L ALT 16 (4-34) U/L Alkaline Phosphatase 91 (38-126) U/L Total Protein 7.8 (6.3-8.2) g/dL Albumin 4.3 (3.5-5.0) g/dL
[2022-04-12] MEDS: HYDROcodone/APAP 5-325MG 1 EACH TAB PO PRN ×2 (14:51→21:05)
--- NOTE | 2022-04-12 15:19 | HP ---
HISTORY AND PHYSICAL CHIEF COMPLAINT: Abdominal pain. HISTORY OF PRESENT ILLNESS: This 56-year-old woman with a past medical history of cholecystectomy, anxiety, depression, being followed by Dr. Gonzalez in the outpatient is having abdominal pain. The patient completed a 10 day course of Augmentin. Yesterday the patient's pain recurred in the left lower quadrant and patient came to [facility]. CT scan of the abdomen showed significant sigmoid diverticulitis without any abscess. The patient is started on IV antibiotics. Surgical consultation on the way. Patient has been admitted for further evaluation. There is no history of fever, rigors, chills at this time. PAST MEDICAL HISTORY: History of cholecystectomy, anxiety and depression. MEDICATIONS: Reviewed and include: Zofran, omeprazole. Dose and the rest of medications reviewed. ALLERGIES: INCLUDE VICODIN. FAMILY HISTORY: No history of heart disease or strokes in the family. SOCIAL HISTORY: No history of smoking. REVIEW OF SYSTEMS: Fourteen point review of systems is negative except mentioned earlier. PHYSICAL EXAMINATION: Pulse is 84, blood pressure 117/70, respirations 20. HEENT: Conjunctivae normal. NECK: No JVD. CARDIOVASCULAR System: S1, S2. RESPIRATION: Clear to auscultation. ABDOMEN: Soft. Some tenderness in the left lower quadrant. No guarding. No rigidity. No mass palpable. LEGS: No edema. No swelling. NERVOUS SYSTEM: No focal deficits. SKIN: No ulcers, rashes or bleeding. JOINTS: No active deforming arthropathy. LABS: Reviewed and include: WBC 13, hemoglobin is 14.1. ASSESSMENT: 1. Acute sigmoid diverticulitis with failure of outpatient treatment. 2. History of cholecystectomy. 3. History of anxiety, depression. RECOMMENDATIONS AND DISCUSSION: In this 56-year-old woman presented with multiple complex medical issues, we will monitor the patient closely. I would recommend pain management and broad-spectrum IV antibiotics. Proton pump inhibitors. DVT prophylaxis. Repeat labs. Closely follow with surgery. Guarded prognosis. Further recommendations to follow. A copy of dictation being forwarded to Dr. Gonzalez who is the primary care physician. MMINDIO / SHAZIA: [id number] /
[2022-04-12] MEDS: metroNIDAZOLE-NS PMX 500 MG in SALINE 1 100ML.BAG IVPB SCH ×2 (16:44→21:06)
[2022-04-12] MEDS: ONDANSETRON 4 MG/2 ML VIAL IVP PRN (17:47)
[2022-04-12] MEDS ORDERED: PROMETHAZINE 25 MG TAB PO PRN (23:11)
--- NOTE | 2022-04-12 23:24 | P.CONS ---
History of Present Illness - Reason for Consult Consult date: 04/12/22 - History of Present Illness History of Present Illness : Patient is a 56-year female with a past medical history significant for recurrent diverticulitis the patient is almost 5 episodes over the last 2 years and none of them has been treated with oral Augmentin patient recently completed into a 10-day course of oral Augmentin and apparently did felt better however started to having lower abdominal pain with t he symptoms started again yesterday patient described the pain to be more of a sharp at times dull aching intensity is almost 6-7 out of 10 no radiation has been nauseated but no vomiting and denies any diarrhea however some constipation with the symptoms the patient presented to hospital on arrival to the ER the patient was afebrile and no fever was recorded subsequently patient did have white count of 13,000 with a left shift kidney function was normal liver exams are normal urine was negative patient did have a CT of abdominal pelvis which did show some moderate colitis with moderate peridiverticular inflammation however no perforation or abscess patient was started on Zosyn infectious di fauziae was consulted for further management of antibiotic treatment because of multiple episodes recently Review of system: CONSTITUTIONAL: Positive for weakness denies high-grade fever. EYES: No complaint. ENT: No complaint. RESPIRATORY: No complaint. CARDIOVASCULAR: No complaint. GENITOURINARY: No complaint. GASTROINTESTINAL: As per history of present illness. MUSCULOSKELETAL: No complaint. INTEGUMENTARY : No complaint. PSYCHOLOGIC: No complaint. ENDOCRINE: No complaint. NEUROLOGIC: No complaint. Past medical history : Reviewed, documented below Past surgical history : Reviewed, documented below Social history: Reviewed, documented below Medications: Reviewed, as documented below EXAMINATION: Vital sigans= Reviewed and documented below GENERAL DESCRIPTION: Middle-aged female lying in bed, no distress. No tachypnea or accessory muscle of respiration use. HEENT: Shows Pallor , no scleral icterus. Oral mucous membrane is dry. NECK: Trachea central, no thyromegaly. LUNGS: Unlabored breathing. Clear to auscultation anteriorly. No wheeze or crackle. HEART: S1, S2, regular rate and rhythm. ABDOMEN: Soft, right lower quadrant tenderness , no guarding or rigidity EXTREMITIES: No edema feet SKIN: No rash, no masses palpable. NEUROLOGICAL: The patient is awake, alert, oriented x3, mood and affect normal. LABS AND RADIOLOGY: Reviewed results see below Assessment : 1patient presented hospital with lower abdominal pain in this patient who did have almost 5 episodes of diverticulitis over the last 2 years and all of them has been treated with oral Augmentin and recently completed a course likely failing oral Augmentin therapy and possibly resistant gram- negative enteric bacteria Plan: 1-Zosyn 3.375 g every 8 hours to continue 2-IV fluid and bowel rest 3-we will check her outpatient IV antibiotic coverage as the patient may benefit from it We will follow on clinical condition and cultures to further adjust medication if needed Thank you for this consultation we will follow the patient along with you Past Medical History Additional Past Medical History / Comment(s): Diverticulitis 2010 History of Any Multi-Drug Resistant Organisms: None Reported Past Surgical History: No Surgical Hx Reported Past Anesthesia/Blood Transfusion Reactions: No Reported Reaction Past Psychological History: No Psychological Hx Reported Smoking Status: Never smoker Past Alcohol Use History: Occasional Past Drug Use History: None Reported Medications and Allergies Home Medications Medication Instructions Recorded Confirmed Type Calcium Carbonate [Calcium] 600 mg PO DAILY 04/12/22 04/12/22 History Cholecalciferol [Vitamin D3 (25 25 mcg PO DAILY 04/12/22 04/12/22 History Mcg = 1000 Iu)] Citalopram Hydrobromide [CeleXA] 10 mg PO DAILY 04/12/22 04/12/22 History Fluticasone Nasal [place] [Flonase 1 spray EA NOSTRIL DAILY PRN 04/12/22 04/12/22 History Nasal [place]] Ibuprofen [Motrin Ib] 800 mg PO Q8H PRN 04/12/22 04/12/22 History Levothyroxine Sodium [Synthroid] 50 mcg PO DAILY 04/12/22 04/12/22 History Multivitamins, Thera [Multivitamin 1 tab PO DAILY 04/12/22 04/12/22 History (formulary)] [place] Xl 1 tab PO DAILY 04/12/22 04/12/22 History Omeprazole 40 mg PO DAILY 04/12/22 04/12/22 History Ondansetron [Zofran] 4 mg PO Q12HR PRN 04/12/22 04/12/22 History Allergies Allergy/AdvReac Type Severity Reaction Status Date / Time acetaminophen [From Vicodin] AdvReac Nausea & Verified 04/12/22 11:28 Vomiting & Diarrhea hydrocodone [From Vicodin] AdvReac Nausea & Verified 04/12/22 11:28 Vomiting & Diarrhea Physical Exam Vitals: Vital Signs Temp Pulse Pulse Resp BP BP Pulse Ox 04/12/22 14:00 98.1 F 83 20 103/69 95 04/12/22 11:17 97.7 F 84 20 117/79 95 04/12/22 06:21 97.9 F 87 18 154/90 96 Intake and Output 04/12/22 04/12/22 04/12/22 06:59 14:59 22:59 Intake Total 240 Balance 240 Intake: Oral 240 Other: # Voids 2 Weight 129.727 kg 129.727 kg Results CBC & Chem 7: 04/12/22 06:34 04/12/22 06:34 Labs: Abnormal Lab Results - Last 24 Hours (Table) 04/12/22 04/12/22 04/12/22 Range/Units 06:34 06:34 06:36 WBC 13.0 H (3.8-10.6) k/uL Neutrophils # 10.9 H (1.3-7.7) k/uL Sodium 135 L (137-145) mmol/L Glucose 136 H (74-99) mg/dL Urine Protein Trace H (Negative)
[2022-04-12] MEDS: PROMETHAZINE 25 MG TAB PO PRN (23:34)
[2022-04-13] MEDS: SODIUM CHLORIDE 0.9% 1,000 ML IV SCH ×3 (00:57→20:53)
[2022-04-13] MEDS: PIPERACILLIN-TAZOBACTAM 3.375 GM in SODIUM CHLORIDE 0.9% 100 ML IVPB SCH ×4 (00:57→23:51)
[2022-04-13] MEDS: LEVOTHYROXINE 50 MCG TAB PO SCH (05:40)
[2022-04-13] MEDS: PROMETHAZINE 25 MG TAB PO PRN (05:40)
[2022-04-13] MEDS: ACETAMINOPHEN TAB 500 MG TAB PO PRN (05:45)
[2022-04-13] MEDS: PANTOPRAZOLE 40 MG TABLET PO SCH (08:03)
[2022-04-13] MEDS: CALCIUM CARBONATE 500 MG CHEWABLE PO SCH (08:03)
[2022-04-13] MEDS: MULTIVITAMINS, THERA 1 EACH TAB PO SCH (08:03)
[2022-04-13] MEDS: CHOLECALCIFEROL 25 MCG (1000 IU) TABLET PO SCH (08:03)
[2022-04-13] MEDS: CITALOPRAM HYDROBROMIDE 10 MG TAB PO SCH (08:21)
[2022-04-13] MEDS: metroNIDAZOLE-NS PMX 500 MG in SALINE 1 100ML.BAG IVPB SCH ×3 (08:22→20:55)
[2022-04-13 10:25] LABS: Basophils # (A) 0.02 X 10*3/uL (0.00-0.10); Basophils % (A) 0.3 %; Eosinophils # (A) 0.04 X 10*3/uL (0.04-0.35); Eosinophils % (A) 0.5 %; HCT 38.1 % (37.2-46.3); HGB 12.1 g/dL (12.0-15.0); Immature Grans, Automated 0.3 %; Lymphocytes # (A) 1.86 X 10*3/uL (0.90-5.00); Lymphocytes % (A) 24.9 %; MCH 30.1 pg (27.0-32.0); MCHC 31.8 g/dL (32.0-37.0); MCV 94.8 fL (80.0-97.0); Mean Platelet Volume 9.9 fL (9.5-12.2); Monocytes % (A) 6.7 %; NRBC Per 100 WBC 0 /100 WBCS (0.0-0.0); Neutrophils # (A) 5.03 X 10*3/uL (1.80-7.70); Neutrophils % (A) 67.3 %; Platelet Count 285 X 10*3/uL (140-440); RBC 4.02 X 10*6/uL (4.10-5.20); RDW 14.1 % (11.5-14.5); WBC 7.47 X 10*3/uL (4.50-10.00)
[2022-04-13 10:37] LABS: Anion Gap 8.6 mmol/L (10.00-18.00); BUN/Creat Ratio 8.22 Ratio (12.00-20.00); Blood Urea Nitrogen 7.4 mg/dL (9.0-27.0); Calcium 8.5 mg/dL (8.7-10.3); Carbon Dioxide 26.4 mmol/L (20.0-27.5); Non-African American GFR(CKD) 72.5 (60.0-200.0); Potassium 4.2 mmol/L (3.5-5.5)
[2022-04-13] MEDS: HYDROcodone/APAP 5-325MG 1 EACH TAB PO PRN (11:02)
[2022-04-13] MEDS: ONDANSETRON 4 MG/2 ML VIAL IVP PRN (13:01)
[2022-04-13] MEDS ORDERED: SODIUM CHLORIDE 0.9% 1,000 ML IV ONE (14:16)
--- NOTE | 2022-04-13 14:26 | P.PN ---
Subjective Progress Note Date: 04/13/22 CHIEF COMPLAINT: Diverticulitis HISTORY OF PRESENT ILLNESS: Patient reports the abdominal pain is about the same. She has been having nausea and did vomit during the night last night and medicine service had given her Phenergan. Patient reports that she still feels nauseated. She is afebrile. White count did decrease from 13-7. She's been evaluated by infectious disease. Patient may require IV antibiotics at discharge. telecommunications project manager is also involved in possible IV antibiotics. PHYSICAL EXAM: VITAL SIGNS: Reviewed. GENERAL: Well-developed in no acute distress. HEENT: No sclera icterus. Extraocular movements grossly intact. Moist buccal mucosa. Head is atraumatic, normocephalic. ABDOMEN: Soft. Nondistended. Tenderness to palpation of the right lower quadrant and suprapubic area NEUROLOGIC: Alert and oriented. Cranial nerves II through XII grossly intact. ASSESSMENT: 1. Acute sigmoid diverticulitis 2. Recurrent episodes of diverticulitis 3. Leukocytosis PLAN: -Add scopolamine patch for nausea and vomiting -We'll give her 1 L fluid bolus to help hydrate patient which will also help with her nausea -Add Toradol to help with pain control -Add Tylenol to help with pain control -Continue a clear liquid diet -Repeat CBC in a.m. -Continue antibiotics -Discharge antibiotics per ID service Physician Yard Inspector note has been reviewed by physician. Signing provider agrees with the documented findings, assessment, and plan of care. Objective - Vital Signs Vital signs: Vital Signs Temp 98.6 F 04/13/22 07:00 Pulse 87 04/13/22 07:00 Resp 16 04/13/22 08:12 BP 103/67 04/13/22 07:00 Pulse Ox 94 L 04/13/22 07:00 FiO2 Intake & Output 04/12/22 04/13/22 04/13/22 18:59 06:59 18:59 Intake Total 240 100 Balance 240 100 Weight 129.727 kg Intake: Intake, IV Titration 100 Amount metroNIDAZOLE-NS PMX 500 100 mg In Saline 1 100ml.bag @ 100 mls/hr IVPB ONCE STA Rx#:[id number] Oral 240 Other: Voiding Method Toilet # Voids 2 1 - Labs CBC & Chem 7: 04/13/22 07:39 04/13/22 07:39 Labs: Abnormal Lab Results - Last 24 Hours (Table) 04/13/22 04/13/22 Range/Units 07:39 07:39 RBC 4.02 L (4.10-5.20) X 10*6/uL MCHC 31.8 L (32.0-37.0) g/dL Anion Gap 8.60 L (10.00-18.00) mmol/L BUN 7.4 L (9.0-27.0) mg/dL BUN/Creatinine Ratio 8.22 L (12.00-20.00) Ratio Calcium 8.5 L (8.7-10.3) mg/dL
[2022-04-13] MEDS: KETOROLAC 15 MG/ML 1 ML VIAL IVP SCH ×3 (15:22→23:50)
[2022-04-13] MEDS: ACETAMINOPHEN TAB 500 MG TAB PO SCH ×3 (15:22→23:51)
[2022-04-13] MEDS: SCOPOLAMINE 1 MG/72 HR PATCH TRANSDERM SCH (15:23)
--- NOTE | 2022-04-13 19:36 | PN ---
PROGRESS NOTE DATE OF SERVICE: 04/13/2022 This 56-year-old woman admitted with abdominal pain and acute diverticulitis is on IV antibiotics. No chest pain. No palpitations. No fever. PHYSICAL EXAMINATION: Pulse 87, blood pressure 103/67, respirations 16. HEENT: Conjunctivae normal. NECK: No jugular venous distention. CARDIOVASCULAR: S1, S2 muffled. RESPIRATION: Breath sounds diminished at the bases. ABDOMEN: Soft. Mild diffuse tenderness in the lower abdomen. No guarding. No rigidity. LEGS: No edema. No swelling. NERVOUS SYSTEM: No focal deficit. LABS: WBC 7.47. ASSESSMENT: 1. Acute sigmoid diverticulitis with failure of outpatient treatment. 2. Severe abdominal pain. 3. History of cholecystectomy. 4. History of anxiety, depression. RECOMMENDATIONS AND DISCUSSION: I recommend to continue current medications, continue with the monitoring, symptomatic treatment. Continue with IV antibiotics. Follow closely with Surgery, Infectious Disease. Further recommendations to follow. MMODL / IJN: [id number] /
[2022-04-13] MEDS: PANTOPRAZOLE 40 MG/10 ML VIAL IVP SCH (20:53)
--- NOTE | 2022-04-13 22:15 | P.PN ---
Subjective Progress Note Date: 04/13/22 Principal diagnosis: Recurrent diverticulitis Patient is a 56-year-old female with a past medical history significant for recurrent diverticulitis, almost 5 episode over the last 2 years, presented to hospital with abdominal pain and has been diagnosed with acute diverticulitis but no perforation. On today's evaluation that is 04/13/2022, she the patient denies having any fever or any chills, patient mentioned she did have an episode of vomiting this morning denies any worsening abdominal pain or chest pain shortness of breath or cough Objective - Vital Signs Vital signs: Vital Signs Temp 98.6 F 04/13/22 07:00 Pulse 87 04/13/22 07:00 Resp 16 04/13/22 14:00 BP 103/67 04/13/22 07:00 Pulse Ox 94 L 04/13/22 07:00 FiO2 Intake & Output 04/12/22 04/13/22 04/13/22 18:59 06:59 18:59 Intake Total 240 100 Balance 240 100 Weight 129.727 kg Intake: Intake, IV Titration 100 Amount metroNIDAZOLE-NS PMX 500 100 mg In Saline 1 100ml.bag @ 100 mls/hr IVPB ONCE STA Rx#:[id number] Oral 240 Other: Voiding Method Toilet # Voids 2 1 1 - Exam GENERAL DESCRIPTION: Middle-aged female lying in bed in no distress RESPIRATORY SYSTEM: Unlabored breathing , decreased breath sounds at bases HEART: S1 S2 regular rate and rhythm , ABDOMEN: Soft , mild right lower quadrant tenderness EXTREMITIES: No edema feet - Labs CBC & Chem 7: 04/13/22 07:39 04/13/22 07:39 Labs: Abnormal Lab Results - Last 24 Hours (Table) 04/13/22 04/13/22 Range/Units 07:39 07:39 RBC 4.02 L (4.10-5.20) X 10*6/uL MCHC 31.8 L (32.0-37.0) g/dL Anion Gap 8.60 L (10.00-18.00) mmol/L BUN 7.4 L (9.0-27.0) mg/dL BUN/Creatinine Ratio 8.22 L (12.00-20.00) Ratio Calcium 8.5 L (8.7-10.3) mg/dL Assessment and Plan (1) Diverticulitis Current Visit: Yes Status: Acute Code(s): K57.92 - DVTRCLI OF INTEST, PART UNSP, W/O PERF OR ABSCESS W/O BLEED SNOMED Code(s): 744590869 (2) Failure of outpatient treatment Current Visit: Yes Status: Acute Code(s): Z78.9 - OTHER SPECIFIED HEALTH STATUS SNOMED Code(s): 962145881 Plan: 1patient presented to the hospital with abdominal pain in this patient who do have history of recurrent diverticulitis failing outpatient oral Augmentin therapy see the abdominal pelvis did not show any perforation or abscess formation. 2patient to continue with the Zosyn 3.375 g every 8 hours along with bowel rest and monitor clinical course closely Time with Patient: Less than 30
[2022-04-14] MEDS: ONDANSETRON 4 MG/2 ML VIAL IVP PRN (00:01)
[2022-04-14] MEDS: ACETAMINOPHEN TAB 500 MG TAB PO SCH ×4 (06:14→23:27)
[2022-04-14] MEDS: KETOROLAC 15 MG/ML 1 ML VIAL IVP SCH ×4 (06:15→23:30)
[2022-04-14] MEDS: LEVOTHYROXINE 50 MCG TAB PO SCH (06:15)
[2022-04-14] MEDS: metroNIDAZOLE-NS PMX 500 MG in SALINE 1 100ML.BAG IVPB SCH ×3 (08:01→21:10)
[2022-04-14] MEDS ORDERED: PROMETHAZINE 25 MG TAB PO PRN (08:41)
[2022-04-14] MEDS: PANTOPRAZOLE 40 MG/10 ML VIAL IVP SCH ×2 (09:15→21:09)
[2022-04-14] MEDS: CITALOPRAM HYDROBROMIDE 10 MG TAB PO SCH (09:16)
[2022-04-14] MEDS: MULTIVITAMINS, THERA 1 EACH TAB PO SCH (09:16)
[2022-04-14] MEDS: SODIUM CHLORIDE 0.9% 1,000 ML IV SCH ×3 (09:16→23:27)
[2022-04-14] MEDS: CHOLECALCIFEROL 25 MCG (1000 IU) TABLET PO SCH (09:16)
[2022-04-14] MEDS: CALCIUM CARBONATE 500 MG CHEWABLE PO SCH (09:16)
[2022-04-14 10:44] LABS: Basophils # (A) 0.03 X 10*3/uL (0.00-0.10); Basophils % (A) 0.5 %; Eosinophils # (A) 0.14 X 10*3/uL (0.04-0.35); Eosinophils % (A) 2.2 %; HCT 37.9 % (37.2-46.3); HGB 11.9 g/dL (12.0-15.0); Immature Grans, Automated 0.3 %; Lymphocytes # (A) 1.58 X 10*3/uL (0.90-5.00); Lymphocytes % (A) 25.2 %; MCHC 31.4 g/dL (32.0-37.0); MCV 95.5 fL (80.0-97.0); Mean Platelet Volume 10.2 fL (9.5-12.2); Monocytes # (A) 0.42 X 10*3/uL (0.20-1.00); Monocytes % (A) 6.7 %; NRBC Per 100 WBC 0 /100 WBCS (0.0-0.0); Neutrophils # (A) 4.09 X 10*3/uL (1.80-7.70); Neutrophils % (A) 65.1 %; Platelet Count 275 X 10*3/uL (140-440); RBC 3.97 X 10*6/uL (4.10-5.20); RDW 14.1 % (11.5-14.5); WBC 6.28 X 10*3/uL (4.50-10.00)
[2022-04-14] MEDS: PIPERACILLIN-TAZOBACTAM 3.375 GM in SODIUM CHLORIDE 0.9% 100 ML IVPB SCH ×2 (11:00→21:09)
--- NOTE | 2022-04-14 13:42 | P.PN ---
Subjective Progress Note Date: 04/14/22 CHIEF COMPLAINT: Diverticulitis HISTORY OF PRESENT ILLNESS: Patient is feeling better today. She appears comfortable sitting at bedside chair. She denies any nausea or vomiting. She feels that she could tolerate more food. Afebrile. WBC is 6.28 Hgb 11.9 PHYSICAL EXAM: VITAL SIGNS: Reviewed. GENERAL: Well-developed in no acute distress. HEENT: No sclera icterus. Extraocular movements grossly intact. Moist buccal mucosa. Head is atraumatic, normocephalic. ABDOMEN: Soft. Nondistended. NEUROLOGIC: Alert and oriented. Cranial nerves II through XII grossly intact. ASSESSMENT: 1. Acute sigmoid diverticulitis 2. Recurrent episodes of diverticulitis 3. Leukocytosis PLAN: -Advance diet to low fiber -Patient can be discharged from surgical standpoint when cleared medically and by infectious disease -Patient to follow-up with Dr. Tsai outpatient -Awaiting discharge antibiotic recommendations per Dr. Rodríguez -Continue supportive care -Continue pain medication as needed Physician After School Program Coordinator note has been reviewed by physician. Signing provider agrees with the documented findings, assessment, and plan of care. Objective - Vital Signs Vital signs: Vital Signs Temp 97.6 F 04/14/22 07:32 Pulse 74 04/14/22 07:32 Resp 16 04/14/22 08:17 BP 110/60 04/14/22 07:32 Pulse Ox 98 04/14/22 07:32 FiO2 Intake & Output 04/13/22 04/14/22 04/14/22 18:59 06:59 18:59 Intake Total 240 100 Balance 240 100 Intake: Intake, IV Titration 100 Amount Piperacillin-Tazobactam 3 100 .375 gm In Sodium Chloride 0.9% 100 ml @ 25 mls/hr IVPB Q8HR [facility] Rx# :[id number] Oral 240 Other: Voiding Method Toilet Toilet # Voids 2 1 - Labs CBC & Chem 7: 04/14/22 07:26 04/13/22 07:39 Labs: Abnormal Lab Results - Last 24 Hours (Table) 04/14/22 Range/Units 07:26 RBC 3.97 L (4.10-5.20) X 10*6/uL Hgb 11.9 L (12.0-15.0) g/dL MCHC 31.4 L (32.0-37.0) g/dL
[2022-04-15] MEDS: SODIUM CHLORIDE 0.9% 1,000 ML IV SCH ×2 (01:27→21:50)
[2022-04-15] MEDS: PIPERACILLIN-TAZOBACTAM 3.375 GM in SODIUM CHLORIDE 0.9% 100 ML IVPB SCH ×3 (04:06→20:39)
[2022-04-15] MEDS: KETOROLAC 15 MG/ML 1 ML VIAL IVP SCH ×3 (05:38→18:09)
[2022-04-15] MEDS: ACETAMINOPHEN TAB 500 MG TAB PO SCH ×3 (05:38→18:08)
[2022-04-15] MEDS: LEVOTHYROXINE 50 MCG TAB PO SCH (05:39)
[2022-04-15] MEDS: CALCIUM CARBONATE 500 MG CHEWABLE PO SCH (08:42)
[2022-04-15] MEDS: CHOLECALCIFEROL 25 MCG (1000 IU) TABLET PO SCH (08:42)
[2022-04-15] MEDS: MULTIVITAMINS, THERA 1 EACH TAB PO SCH (08:42)
[2022-04-15] MEDS: PANTOPRAZOLE 40 MG/10 ML VIAL IVP SCH ×2 (08:44→20:39)
[2022-04-15] MEDS: CITALOPRAM HYDROBROMIDE 10 MG TAB PO SCH (08:44)
[2022-04-15] MEDS: metroNIDAZOLE-NS PMX 500 MG in SALINE 1 100ML.BAG IVPB SCH ×3 (08:45→21:49)
--- NOTE | 2022-04-15 10:50 | P.PN ---
Progress Note - Text Progress Note Date: 04/15/22 Patient's resting comfortably in her bed. She states her pain is improved. On exam vital signs are stable. Abdomen soft. Improving diverticula is. Patient continue receive IV antibiotics and supportive care.
--- NOTE | 2022-04-15 19:57 | P.PN ---
Subjective Progress Note Date: 04/14/22 56-year female with a past medical history significant for recurrent diverticulitis the patient is almost 5 episodes over the last 2 years and none of them has been treated with oral Augmentin patient recently completed into a 10-day course of oral Augmentin and apparently did felt better however started to having lower abdominal pain with the symptoms started again yesterday patient described the pain to be more of a sharp at times dull aching intensity is almost 6-7 out of 10 no radiation has been nauseated but no vomiting and denies any diarrhea however some constipation with the symptoms the patient presented to hospital on arrival to the ER the patient was afebrile and no fever was recorded subsequently patient did have white count of 13,000 with a left shift kidney function was normal liver exams are normal urine was negative patient did have a CT of abdominal pelvis which did show some moderate colitis with moderate peridiverticular inflammation however no perforation or abscess patient was started on Zosyn infectious disease was consulted for further management of antibiotic treatment because of multiple episodes recently Objective - Vital Signs Vital signs: Vital Signs Temp 98.6 F 04/14/22 14:04 Pulse 81 04/14/22 14:04 Resp 16 04/14/22 14:04 BP 112/69 04/14/22 14:04 Pulse Ox 98 04/14/22 14:04 FiO2 Intake & Output 04/13/22 04/14/22 04/14/22 18:59 06:59 18:59 Intake Total 240 100 Balance 240 100 Intake: Intake, IV Titration 100 Amount Piperacillin-Tazobactam 3 100 .375 gm In Sodium Chloride 0.9% 100 ml @ 25 mls/hr IVPB Q8HR [facility] Rx# :[id number] Oral 240 Other: Voiding Method Toilet Toilet # Voids 2 1 - Exam GENERAL DESCRIPTION: Middle-aged female lying in bed, no distress. No tachypnea or accessory muscle of respiration use. HEENT: Shows Pallor , no scleral icterus. Oral mucous membrane is dry. NECK: Trachea central, no thyromegaly. LUNGS: Unlabored breathing. Clear to auscultation anteriorly. No wheeze or crackle. HEART: S1, S2, regular rate and rhythm. ABDOMEN: Soft, right lower quadrant tenderness , no guarding or rigidity EXTREMITIES: No edema feet SKIN: No rash, no masses palpable. NEUROLOGICAL: The patient is awake, alert, oriented x3, mood and affect normal. - Labs CBC & Chem 7: 04/14/22 07:26 04/13/22 07:39 Labs: Abnormal Lab Results - Last 24 Hours (Table) 04/14/22 Range/Units 07:26 RBC 3.97 L (4.10-5.20) X 10*6/uL Hgb 11.9 L (12.0-15.0) g/dL MCHC 31.4 L (32.0-37.0) g/dL Assessment and Plan Assessment: 1. Acute diverticulitis; patient is reported 5 episodes of diverticulitis over last 2 years and is on was treated with Augmentin.; Patient recently completed a course of Augmentin outpatient and is admitted for possible resistant gram- negative enteric bacteria causing diverticulitis and possible resistance to Augmentin 2. Hypothyroidism 3. ALLERGIES 4. Vitamin D deficiency 5. Depression 6. Gastroesophageal reflux disease Plan: 1-Zosyn 3.375 g every 8 hours to continue 2-IV fluid and bowel rest 3-we will check her outpatient IV antibiotic coverage as the patient may benefit from it We will follow on clinical condition and cultures to further adjust medication if needed
--- NOTE | 2022-04-15 19:58 | P.PN ---
Subjective Progress Note Date: 04/15/22 Principal diagnosis: Acute diverticulitis failing outpatient treatment 56-year female with a past medical history significant for recurrent diverticulitis the patient is almost 5 episodes over the last 2 years and none of them has been treated with oral Augmentin patient recently completed into a 10-day course of oral Augmentin and apparently did felt better however started to having lower abdominal pain with the symptoms started again yesterday patient described the pain to be more of a sharp at times dull aching intensity is almost 6-7 out of 10 no radiation has been nauseated but no vomiting and denies any diarrhea however some constipation with the symptoms the patient presented to hospital on arrival to the ER the patient was afebrile and no fever was recorded subsequently patient did have white count of 13,000 with a left shift kidney function was normal liver exams are normal urine was negative patient did have a CT of abdominal pelvis which did show some moderate colitis with moderate peridiverticular inflammation however no perforation or abscess patient was started on Zosyn infectious disease was consulted for further management of antibiotic treatment because of multiple episodes recently Patient is seen and evaluated sitting up in bed; report some improvement in pain; still requiring IV pain medications [id number]; continue with IV antibiotics and IV fluids; plan for slow advancement of diet with clinical improvement Objective - Vital Signs Vital signs: Vital Signs Temp 98.2 F 04/15/22 14:00 Pulse 66 04/15/22 14:00 Resp 16 04/15/22 14:00 BP 123/72 04/15/22 14:00 Pulse Ox 98 04/15/22 14:00 FiO2 Intake & Output 04/14/22 04/15/22 04/15/22 18:59 06:59 18:59 Intake Total 118 Balance 118 Intake: Oral 118 Other: Voiding Method Toilet Toilet Toilet # Voids 1 1 # Bowel Movements 1 - Exam GENERAL DESCRIPTION: Middle-aged female lying in bed, no distress. No tachypnea or accessory muscle of respiration use. HEENT: Shows Pallor , no scleral icterus. Oral mucous membrane is dry. NECK: Trachea central, no thyromegaly. LUNGS: Unlabored breathing. Clear to auscultation anteriorly. No wheeze or crackle. HEART: S1, S2, regular rate and rhythm. ABDOMEN: Soft, right lower quadrant tenderness , no guarding or rigidity EXTREMITIES: No edema feet SKIN: No rash, no masses palpable. NEUROLOGICAL: The patient is awake, alert, oriented x3, mood and affect normal. - Labs CBC & Chem 7: 04/14/22 07:26 04/13/22 07:39 Assessment and Plan Assessment: 1. Acute diverticulitis; patient is reported 5 episodes of diverticulitis over last 2 years and is on was treated with Augmentin.; Patient recently completed a course of Augmentin outpatient and is admitted for possible resistant gram- negative enteric bacteria causing diverticulitis and possible resistance to Augmentin 2. Hypothyroidism 3. ALLERGIES 4. Vitamin D deficiency 5. Depression 6. Gastroesophageal reflux disease Plan: 1-Zosyn 3.375 g every 8 hours to continue 2-IV fluid and bowel rest 3-we will check her outpatient IV antibiotic coverage as the patient may benefit from it We will follow on clinical condition and cultures to further adjust medication if needed
[2022-04-16] MEDS: ACETAMINOPHEN TAB 500 MG TAB PO SCH ×5 (00:23→23:50)
[2022-04-16] MEDS: KETOROLAC 15 MG/ML 1 ML VIAL IVP SCH ×3 (00:23→11:27)
--- NOTE | 2022-04-16 00:51 | P.PN ---
Subjective Progress Note Date: 04/14/22 Principal diagnosis: Recurrent diverticulitis Patient is a 56-year-old female with a past medical history significant for recurrent diverticulitis, almost 5 episode over the last 2 years, presented to hospital with abdominal pain and has been diagnosed with acute diverticulitis but no perforation. On today's evaluation that is 04/14/2022, the patient remains to be afebrile, patient is breathing comfortably on room air, the patient denies any further nausea or vomiting and abdominal pain is slightly decreased intensity did have some diarrhea Objective - Vital Signs Vital signs: Vital Signs Temp 97.6 F 04/14/22 07:32 Pulse 74 04/14/22 07:32 Resp 16 04/14/22 08:17 BP 110/60 04/14/22 07:32 Pulse Ox 98 04/14/22 07:32 FiO2 Intake & Output 04/13/22 04/14/22 04/14/22 18:59 06:59 18:59 Intake Total 240 100 Balance 240 100 Intake: Intake, IV Titration 100 Amount Piperacillin-Tazobactam 3 100 .375 gm In Sodium Chloride 0.9% 100 ml @ 25 mls/hr IVPB Q8HR [facility] Rx# :[id number] Oral 240 Other: Voiding Method Toilet Toilet # Voids 2 1 - Exam GENERAL DESCRIPTION: Middle-aged female lying in bed in no distress RESPIRATORY SYSTEM: Unlabored breathing , decreased breath sounds at bases HEART: S1 S2 regular rate and rhythm , ABDOMEN: Soft , mild right lower quadrant tenderness EXTREMITIES: No edema feet - Labs CBC & Chem 7: 04/14/22 07:26 04/13/22 07:39 Labs: Abnormal Lab Results - Last 24 Hours (Table) 04/14/22 Range/Units 07:26 RBC 3.97 L (4.10-5.20) X 10*6/uL Hgb 11.9 L (12.0-15.0) g/dL MCHC 31.4 L (32.0-37.0) g/dL Assessment and Plan (1) Diverticulitis Current Visit: Yes Status: Acute Code(s): K57.92 - DVTRCLI OF INTEST, PART UNSP, W/O PERF OR ABSCESS W/O BLEED SNOMED Code(s): 193686237 (2) Failure of outpatient treatment Current Visit: Yes Status: Acute Code(s): Z78.9 - OTHER SPECIFIED HEALTH STATUS SNOMED Code(s): 764590350 Plan: 1patient presented to the hospital with abdominal pain in this patient who do have history of recurrent diverticulitis failing outpatient oral Augmentin therapy see the abdominal pelvis did not show any perforation or abscess formation. 2patient seemed to showing clinical improvement and will continue with the Zosyn 3.375 g every 8 hours and monitor clinical course closely Time with Patient: Less than 30
--- NOTE | 2022-04-16 00:52 | P.PN ---
Subjective Progress Note Date: 04/15/22 Principal diagnosis: Recurrent diverticulitis Patient is a 56-year-old female with a past medical history significant for recurrent diverticulitis, almost 5 episode over the last 2 years, presented to hospital with abdominal pain and has been diagnosed with acute diverticulitis but no perforation. On today's evaluation that is 04/15/2022, the patient denies any fever or chills, patient is breathing comfortably on room air, the patient denies nausea or vomiting and abdominal pain has decreased intensity, the patient did have some diarrhea but no blood or mucus in the stool Objective - Vital Signs Vital signs: Vital Signs Temp 98.1 F 04/15/22 07:50 Pulse 65 04/15/22 07:50 Resp 16 04/15/22 07:50 BP 131/67 04/15/22 07:50 Pulse Ox 100 04/15/22 07:50 FiO2 Intake & Output 04/14/22 04/15/22 04/15/22 18:59 06:59 18:59 Intake Total 118 Balance 118 Intake: Oral 118 Other: Voiding Method Toilet Toilet Toilet # Voids 1 1 # Bowel Movements 1 - Exam GENERAL DESCRIPTION: Middle-aged female lying in bed in no distress RESPIRATORY SYSTEM: Unlabored breathing , decreased breath sounds at bases HEART: S1 S2 regular rate and rhythm , ABDOMEN: Soft , mild right lower quadrant tenderness EXTREMITIES: No edema feet - Labs CBC & Chem 7: 04/14/22 07:26 04/13/22 07:39 Assessment and Plan (1) Diverticulitis Current Visit: Yes Status: Acute Code(s): K57.92 - DVTRCLI OF INTEST, PART UNSP, W/O PERF OR ABSCESS W/O BLEED SNOMED Code(s): 895665500 (2) Failure of outpatient treatment Current Visit: Yes Status: Acute Code(s): Z78.9 - OTHER SPECIFIED HEALTH STATUS SNOMED Code(s): 513002379 Plan: 1patient presented to the hospital with abdominal pain in this patient who do have history of recurrent diverticulitis failing outpatient oral Augmentin therapy see the abdominal pelvis did not show any perforation or abscess formation. 2patient a slowly clinically probing with the current treatment of Zosyn 3.375 g every 8 hours which will be continued while inpatient and will be finishing therapy with oral antibiotics Time with Patient: Less than 30
[2022-04-16] MEDS: PIPERACILLIN-TAZOBACTAM 3.375 GM in SODIUM CHLORIDE 0.9% 100 ML IVPB SCH ×3 (05:41→20:05)
[2022-04-16] MEDS: SODIUM CHLORIDE 0.9% 1,000 ML IV SCH ×3 (05:41→21:56)
[2022-04-16] MEDS: LEVOTHYROXINE 50 MCG TAB PO SCH (05:41)
[2022-04-16] MEDS: CALCIUM CARBONATE 500 MG CHEWABLE PO SCH (08:58)
[2022-04-16] MEDS: CHOLECALCIFEROL 25 MCG (1000 IU) TABLET PO SCH (08:58)
[2022-04-16] MEDS: MULTIVITAMINS, THERA 1 EACH TAB PO SCH (08:58)
[2022-04-16] MEDS: CITALOPRAM HYDROBROMIDE 10 MG TAB PO SCH (08:58)
[2022-04-16] MEDS: PANTOPRAZOLE 40 MG/10 ML VIAL IVP SCH ×2 (08:58→20:05)
[2022-04-16] MEDS: metroNIDAZOLE-NS PMX 500 MG in SALINE 1 100ML.BAG IVPB SCH ×3 (09:11→21:56)
--- NOTE | 2022-04-16 09:33 | P.PN ---
Progress Note - Text Progress Note Date: 04/16/22 Patient is complaining of lower abdomen fullness and some mild pain. Overall she feels better. On exam vital signs are stable. Abdomen soft. Resolving diverticulitis. Patient to receive IV antibiotic.
[2022-04-16 10:56] LABS: Basophils # (A) 0.04 X 10*3/uL (0.00-0.10); Basophils % (A) 0.7 %; Eosinophils # (A) 0.18 X 10*3/uL (0.04-0.35); HCT 36.4 % (37.2-46.3); HGB 11.6 g/dL (12.0-15.0); Immature Grans, Automated 0.2 %; Lymphocytes # (A) 1.72 X 10*3/uL (0.90-5.00); Lymphocytes % (A) 29.1 %; MCH 30.1 pg (27.0-32.0); MCHC 31.9 g/dL (32.0-37.0); MCV 94.5 fL (80.0-97.0); Mean Platelet Volume 10.2 fL (9.5-12.2); Monocytes # (A) 0.45 X 10*3/uL (0.20-1.00); Monocytes % (A) 7.6 %; NRBC Per 100 WBC 0 /100 WBCS (0.0-0.0); Neutrophils # (A) 3.52 X 10*3/uL (1.80-7.70); Neutrophils % (A) 59.4 %; Platelet Count 310 X 10*3/uL (140-440); RBC 3.85 X 10*6/uL (4.10-5.20); RDW 14.1 % (11.5-14.5); WBC 5.92 X 10*3/uL (4.50-10.00)
[2022-04-16 11:19] LABS: African American GFR (CKD) 89.9 (60.0-200.0); Anion Gap 8.4 mmol/L (10.00-18.00); BUN/Creat Ratio 6.9 Ratio (12.00-20.00); Blood Urea Nitrogen 5.9 mg/dL (9.0-27.0); Calcium 8.5 mg/dL (8.7-10.3); Carbon Dioxide 23.4 mmol/L (20.0-27.5); Non-African American GFR(CKD) 77.6 (60.0-200.0); Potassium 4.2 mmol/L (3.5-5.5)
[2022-04-16] MEDS: SCOPOLAMINE 1 MG/72 HR PATCH TRANSDERM SCH (15:34)
--- NOTE | 2022-04-16 18:00 | P.PN ---
Subjective Progress Note Date: 04/16/22 Principal diagnosis: Acute diverticulitis failing outpatient treatment 56-year female with a past medical history significant for recurrent diverticulitis the patient is almost 5 episodes over the last 2 years and none of them has been treated with oral Augmentin patient recently completed into a 10-day course of oral Augmentin and apparently did felt better however started to having lower abdominal pain with the symptoms started again yesterday patient described the pain to be more of a sharp at times dull aching intensity is almost 6-7 out of 10 no radiation has been nauseated but no vomiting and denies any diarrhea however some constipation with the symptoms the patient presented to hospital on arrival to the ER the patient was afebrile and no fever was recorded subsequently patient did have white count of 13,000 with a left shift kidney function was normal liver exams are normal urine was negative patient did have a CT of abdominal pelvis which did show some moderate colitis with moderate peridiverticular inflammation however no perforation or abscess patient was started on Zosyn infectious disease was consulted for further management of antibiotic treatment because of multiple episodes recently Patient is seen and evaluated sitting up in bed; report some improvement in pain; still requiring IV pain medications [id number]; continue with IV antibiotics and IV fluids; plan for slow advancement of diet with clinical improvement 04/16/2022 Patient is seen and evaluated sitting up in bed; reports persistent lower abdominal pain but overall improved since admission Vital signs are reviewed and are stable; patient remains afebrile Lab review shows CBC 5.92, hemoglobin 11.6 and platelet count of 310, sodium 139, potassium 4.2, BUN/creatinine of 5.9/0.9 Patient remains on IV antibiotics for acute diverticulitis; does show clinical improvement Gen. surgery on board and recommending to continue advancing diet slowly Objective - Vital Signs Vital signs: Vital Signs Temp 98.4 F 04/16/22 14:00 Pulse 66 04/16/22 14:00 Resp 16 04/16/22 14:00 BP 130/74 04/16/22 14:00 Pulse Ox 99 04/16/22 14:00 FiO2 Intake & Output 04/15/22 04/16/22 04/16/22 18:59 06:59 18:59 Intake Total 177 240 Balance 177 240 Intake: Oral 177 240 Other: Voiding Method Toilet Toilet # Voids 1 1 - Exam GENERAL DESCRIPTION: Middle-aged female lying in bed, no distress. No tachypnea or accessory muscle of respiration use. HEENT: Shows Pallor , no scleral icterus. Oral mucous membrane is dry. NECK: Trachea central, no thyromegaly. LUNGS: Unlabored breathing. Clear to auscultation anteriorly. No wheeze or crackle. HEART: S1, S2, regular rate and rhythm. ABDOMEN: Soft, right lower quadrant tenderness , no guarding or rigidity EXTREMITIES: No edema feet SKIN: No rash, no masses palpable. NEUROLOGICAL: The patient is awake, alert, oriented x3, mood and affect normal. - Labs CBC & Chem 7: 04/16/22 07:09 04/16/22 07:09 Labs: Abnormal Lab Results - Last 24 Hours (Table) 04/16/22 04/16/22 Range/Units 07:09 07:09 RBC 3.85 L (4.10-5.20) X 10*6/uL Hgb 11.6 L (12.0-15.0) g/dL Hct 36.4 L (37.2-46.3) % MCHC 31.9 L (32.0-37.0) g/dL Anion Gap 8.40 L (10.00-18.00) mmol/L BUN 5.9 L (9.0-27.0) mg/dL BUN/Creatinine Ratio 6.90 L (12.00-20.00) Ratio Calcium 8.5 L (8.7-10.3) mg/dL Assessment and Plan Assessment: 1. Acute diverticulitis; patient is reported 5 episodes of diverticulitis over last 2 years and is on was treated with Augmentin.; Patient recently completed a course of Augmentin outpatient and is admitted for possible resistant gram- negative enteric bacteria causing diverticulitis and possible resistance to Augmentin 2. Hypothyroidism 3. ALLERGIES 4. Vitamin D deficiency 5. Depression 6. Gastroesophageal reflux disease Plan: 1-Zosyn 3.375 g every 8 hours to continue 2-IV fluid and bowel rest 3-we will check her outpatient IV antibiotic coverage as the patient may benefit from it We will follow on clinical condition and cultures to further adjust medication if needed
[2022-04-17] MEDS: PIPERACILLIN-TAZOBACTAM 3.375 GM in SODIUM CHLORIDE 0.9% 100 ML IVPB SCH ×2 (03:20→11:20)
[2022-04-17] MEDS: ACETAMINOPHEN TAB 500 MG TAB PO SCH ×2 (05:52→11:19)
[2022-04-17] MEDS: LEVOTHYROXINE 50 MCG TAB PO SCH (05:53)
[2022-04-17 06:38] LABS: Basophils % (A) 1 %; Eosinophils # (A) 0.3 k/uL (0-0.7); Eosinophils % (A) 4 %; HGB 11.9 gm/dL (11.4-16.0); Lymphocytes # (A) 1.4 k/uL (1.0-4.8); Lymphocytes % (A) 21 %; MCH 30.8 pg (25.0-35.0); MCHC 32.1 g/dL (31.0-37.0); Mean Platelet Volume 7.6; Monocytes # (A) 0.3 k/uL (0-1.0); Monocytes % (A) 4 %; Neutrophils # (A) 4.7 k/uL (1.3-7.7); Neutrophils % (A) 70 %; Platelet Count 298 k/uL (150-450); RBC 3.86 m/uL (3.80-5.40); RDW 13.9 % (11.5-15.5); WBC 6.8 k/uL (3.8-10.6)
[2022-04-17 06:56] LABS: African American GFR (CKD) >90 (>60 ml/min/1.73 sqM); Anion Gap 5 mmol/L; Blood Urea Nitrogen 6 mg/dL (7-17); Calcium 8.2 mg/dL (8.4-10.2); Carbon Dioxide 24 mmol/L (22-30); Chloride 107 mmol/L (98-107); Glucose 101 mg/dL (74-99); Non-African American GFR(CKD) 83 (>60 ml/min/1.73 sqM); Potassium 4.3 mmol/L (3.5-5.1); Sodium 136 mmol/L (137-145)
[2022-04-17 07:47] VITALS: BP 135/84; PULSE 64; RESP 14; TEMP 98.2
[2022-04-17] MEDS: PANTOPRAZOLE 40 MG/10 ML VIAL IVP SCH (08:48)
[2022-04-17] MEDS: CALCIUM CARBONATE 500 MG CHEWABLE PO SCH (08:49)
[2022-04-17] MEDS: CITALOPRAM HYDROBROMIDE 10 MG TAB PO SCH (08:49)
[2022-04-17] MEDS: metroNIDAZOLE-NS PMX 500 MG in SALINE 1 100ML.BAG IVPB SCH (08:49)
[2022-04-17] MEDS: MULTIVITAMINS, THERA 1 EACH TAB PO SCH (08:50)
[2022-04-17] MEDS: CHOLECALCIFEROL 25 MCG (1000 IU) TABLET PO SCH (08:50)
[2022-04-17] MEDS: SODIUM CHLORIDE 0.9% 1,000 ML IV SCH (11:48)
--- NOTE | 2022-04-17 12:18 | P.PN ---
Subjective Progress Note Date: 04/17/22 CHIEF COMPLAINT: Diverticulitis HISTORY OF PRESENT ILLNESS: Patient sitting at bedside chair. She reports improvement in her abdominal pain. She still has some tenderness in the right lower quadrant. She is tolerating a low fiber diet. She is having bowel movements. Denies any nausea vomiting. Afebrile. WBC 6.8. Patient is scheduled be discharged today with oral antibiotics as recommended per ID service. PHYSICAL EXAM: VITAL SIGNS: Reviewed. GENERAL: Well-developed in no acute distress. HEENT: No sclera icterus. Extraocular movements grossly intact. Moist buccal mucosa. Head is atraumatic, normocephalic. ABDOMEN: Soft. Nondistended. NEUROLOGIC: Alert and oriented. Cranial nerves II through XII grossly intact. ASSESSMENT: 1. Acute sigmoid diverticulitis 2. Recurrent episodes of diverticulitis 3. Leukocytosis PLAN: -Patient can be discharged from surgical standpoint with outpatient follow-up -Discharge antibiotics per infectious disease recommendations -Continue low fiber diet Physician Assistant Librarian note has been reviewed by physician. Signing provider agrees with the documented findings, assessment, and plan of care. Objective - Vital Signs Vital signs: Vital Signs Temp 98.2 F 04/17/22 07:46 Pulse 64 04/17/22 07:46 Resp 14 04/17/22 07:46 BP 135/84 04/17/22 07:46 Pulse Ox 97 04/17/22 07:46 FiO2 Intake & Output 04/16/22 04/17/22 04/17/22 18:59 06:59 18:59 Intake Total 240 200 240 Balance 240 200 240 Intake: Intake, IV Titration 200 Amount Piperacillin-Tazobactam 3 100 .375 gm In Sodium Chloride 0.9% 100 ml @ 25 mls/hr IVPB Q8H [facility] Rx#: [id number] metroNIDAZOLE-NS PMX 500 100 mg In Saline 1 100ml.bag @ 100 mls/hr IVPB [facility] Rx#:[id number] Oral 240 240 Other: Voiding Method Toilet # Voids 1 - Labs CBC & Chem 7: 04/17/22 06:22 04/17/22 06:22 Labs: Abnormal Lab Results - Last 24 Hours (Table) 04/17/22 Range/Units 06: Sodium 136 L (137-145) mmol/L BUN 6 L (7-17) mg/dL Glucose 101 H (74-99) mg/dL Calcium 8.2 L (8.4-10.2) mg/dL
--- NOTE | 2022-04-18 14:12 | P.DS ---
Providers Date of admission: 04/12/22 09:53 Expected date of discharge: 04/17/22 Attending physician: Kari Franco Consults: 04/12/22 09:53 Consult Physician Urgent Consulting Provider: Romy Tsai Consult Reason/Comments: recurrent diverticulitis Do you want consulting provider notified?: Yes 04/12/22 14:07 Consult Physician Routine Consulting Provider: Vy Rodríguez Consult Reason/Comments: recurrent diverticulitis Do you want consulting provider notified?: Yes Primary care physician: Amanda Gonzalez Hospital Course: Final diagnosis Acute diverticulitis, with 5 reported previous episodes of flareups with in the last 2 years Hypothyroidism Vitamin D deficiency History depression Gastroesophageal reflux disease Morbid obesity with a BMI of 46.2 GI prophylaxis DVT prophylaxis Full code Discharge disposition Patient is being discharged in a stable condition with guarded prognosis to home. Patient will follow-up with Dr. Gonzalez in the outpatient setting upon discharge. Patient is to follow-up with general surgery for [facility] as scheduled. Patient will continue on oral antibiotics in the form of Ceftin 500 mg twice daily along with oral Flagyl 500 mg 3 times a day for the next 10 days. Patient to follow a strict diverticulitis diet and resources provided on discharge. Patient also encouraged to continue with yogurt 3 times a day with meals. Total time taken is greater than 35 minutes. Hospital course This is a 56-year-old female who was recently admitted with recurrent diverticulitis and having increasing abdominal pain and reports to having 5 episodes of flareup within the last 2 years. Patient followed by general surgery and maintained on bowel rest and slowly advance diet as tolerated and recommend continue with current diet regime and slowly advanced once cleared by surgery. Patient encouraged to follow-up with general surgery within the next 1-2 weeks. Patient will continue on oral antibiotics in the form of Ceftin 500 mg twice daily along with Flagyl 500 mg 3 times a day for the next 10 days and was evaluated and followed closely by infectious disease. Recommend repeat labs in the outpatient setting with primary care provider Dr. Gonzalez along with follow-up this week. Patient will also continue on Protonix 40 mg daily on discharge. Prescription provided for repeat labs in the outpatient setting. Patient reports to feeling better and would like to go home. Currently no reports of chest pain, shortness of breath, or palpitations. Patient is afebrile. No reports of nausea or vomiting and patient is tolerating diet. Patient will be discharged home today. A copy of this documentation will be sent to primary care provider Dr. Gonzalez. On exam vital signs are stable. Cardio S1, S2 are muffled. Respiratory system shows diminished breath sounds at the bases with no wheezing or rhonchi noted. Abdomen is soft and obese, and mildly tender on palpation. Nervous system shows no focal deficits. Please refer to medication reconciliation sheet for a list of medications. The impression and plan of care has been dictated by Ana Suarez, Nurse Practitioner as directed. Dr. Salvador MD I have performed a history and examination and MDM of this patient, discussed the same with the dictator, and agree with the dictator's assessment and plan as written ,documented as a scribe. Based on total visit time, I have performed more than 50% of the visit. Patient Condition at Discharge: Stable Plan - Discharge Summary Discharge Rx Participant: No New Discharge Prescriptions: New Fluconazole [Diflucan] 150 mg PO ONCE 1 Days #1 tab Miconazole Nitrate [Monistat 3 Vaginal] 200 mg VAGINAL HS 3 Days #3 suppositor Acetaminophen Tab [Tylenol] 1,000 mg PO Q6HR tab Ondansetron Odt [Zofran Odt] 4 mg PO Q8HR PRN #30 tab PRN Reason: Nausea cefUROXime axetiL [Ceftin] 500 mg PO BID 10 Days #20 tab metroNIDAZOLE [Flagyl] 500 mg PO TID 10 Days #30 tab Pantoprazole [Protonix] 40 mg PO DAILY 30 Days #30 tab Continue [place] Xl 1 tab PO DAILY Multivitamins, Thera [Multivitamin (formulary)] 1 tab PO DAILY Calcium Carbonate [Calcium] 600 mg PO DAILY Omeprazole 40 mg PO DAILY Levothyroxine Sodium [Synthroid] 50 mcg PO DAILY Fluticasone Nasal [place] [Flonase Nasal [place]] 1 spray EA NOSTRIL DAILY PRN PRN Reason: Allergy Symptoms Ibuprofen [Motrin Ib] 800 mg PO Q8H PRN PRN Reason: Pain Cholecalciferol [Vitamin D3 (25 Mcg = 1000 Iu)] 25 mcg PO DAILY Citalopram Hydrobromide [CeleXA] 10 mg PO DAILY Ondansetron [Zofran] 4 mg PO Q12HR PRN PRN Reason: Nausea Discharge Medication List Calcium Carbonate [Calcium] 600 mg PO DAILY 04/12/22 [History] Cholecalciferol [Vitamin D3 (25 Mcg = 1000 Iu)] 25 mcg PO DAILY 04/12/22 [History] Citalopram Hydrobromide [CeleXA] 10 mg PO DAILY 04/12/22 [History] Fluticasone Nasal [place] [Flonase Nasal [place]] 1 spray EA NOSTRIL DAILY PRN 04/12/22 [History] Ibuprofen [Motrin Ib] 800 mg PO Q8H PRN 04/12/22 [History] Levothyroxine Sodium [Synthroid] 50 mcg PO DAILY 04/12/22 [History] Multivitamins, Thera [Multivitamin (formulary)] 1 tab PO DAILY 04/12/22 [History] [place] Xl 1 tab PO DAILY 04/12/22 [History] Omeprazole 40 mg PO DAILY 04/12/22 [History] Ondansetron [Zofran] 4 mg PO Q12HR PRN 04/12/22 [History] Acetaminophen Tab [Tylenol] 1,000 mg PO Q6HR tab 04/17/22 [Rx] Fluconazole [Diflucan] 150 mg PO ONCE 1 Days #1 tab 04/17/22 [Rx] Miconazole Nitrate [Monistat 3 Vaginal] 200 mg VAGINAL HS 3 Days #3 suppositor 04/17/22 [Rx] Ondansetron Odt [Zofran Odt] 4 mg PO Q8HR PRN #30 tab 04/17/22 [Rx] Pantoprazole [Protonix] 40 mg PO DAILY 30 Days #30 tab 04/17/22 [Rx] cefUROXime axetiL [Ceftin] 500 mg PO BID 10 Days #20 tab 04/17/22 [Rx] metroNIDAZOLE [Flagyl] 500 mg PO TID 10 Days #30 tab 04/17/22 [Rx] Follow up Appointment(s)/Referral(s): Romy Tsai MD [STAFF PHYSICIAN] - 05/02/22 Amanda Gonzalez MD [Primary Care Provider] - 1-2 days Ambulatory/Diagnostic Orders: Complete Blood Count w/diff [LAB.AMB] Time Frame: 1 Week, Location: None Selected Patient Instructions/Handouts: Diverticulitis (DC) Activity/Diet/Wound Care/Special Instructions: Activity Limited until follow-up Follow-up with primary care provider on discharge Follow-up with general surgery in 1 week as scheduled Recommend repeat labs of CBC and CMP in the next few days Continue taking antibiotics until finished Continue low fiber diet for the next few days until encouraged to increase diet from surgery Please continue with yogurt such as activia 3 times a day with meals Discharge Disposition: HOME SELF-CARE
== END 2022-04-17 15:34 | disposition home or self-care (01) | DRG 392 ==
LOC: EC 04:34 → 6NMEDSUR 09:53 → OBSVTOIN 09:53
PROVIDERS: ADMIT Hospitalist; ATTEND Hospitalist
DX: K57.32 Diverticulitis of large intestine without perforation or abscess without bleeding (principal); Z68.42 Body mass index [BMI] 45.0-49.9, adult; K76.0 Fatty (change of) liver, not elsewhere classified; E03.9 Hypothyroidism, unspecified; E66.01 Morbid (severe) obesity due to excess calories; E55.9 Vitamin D deficiency, unspecified; K21.9 Gastro-esophageal reflux disease without esophagitis; F32.A Depression, unspecified; F41.9 Anxiety disorder, unspecified; K59.00 Constipation, unspecified; Z79.890 Hormone replacement therapy; Z79.899 Other long term (current) drug therapy; Z90.49 Acquired absence of other specified parts of digestive tract; Z87.19 Personal history of other diseases of the digestive system; Z87.440 Personal history of urinary (tract) infections; Z86.16 Personal history of COVID-19; Z98.890 Other specified postprocedural states; Z88.5 Allergy status to narcotic agent
CPT/HCPCS: 36415; 74176; 80048; 80053; 81003; 82150; 83690; 85025; 96365; 96368; 96375; 99285

== ENCOUNTER → 2022-05-02 | Outpatient (CLI) | payer MEDICAID | END | disposition home or self-care (01) | LOC: LABWHC1 12:54 | PROVIDERS: ATTEND Surgery Plastic and Reconstructive Surgery | DX: K57.32 Diverticulitis of large intestine without perforation or abscess without bleeding (principal) | CPT/HCPCS: 36415; 93005 ==

== ENCOUNTER 2022-06-16 12:41 | Day surgery (SDC) | payer MEDICAID ==
[2022-06-14 11:57] VITALS: BMI 46.1
[2022-06-16] MEDS ORDERED: LACTATED RINGERS 1,000 ML IV ONE ×2 (13:02→15:41)
[2022-06-16 13:11] VITALS: TEMP 98.6
[2022-06-16] MEDS ORDERED: PROPOFOL 10 MG/ML 20 ML VIAL IV ONE (15:27)
--- NOTE | 2022-06-16 15:45 | P.PCN ---
Date of Procedure: 06/16/22 Procedure(s) Performed: BRIEF HISTORY: Patient is a 56-year-old pleasant white female scheduled for an elective colonoscopy as a part of evaluation of recurrent sigmoid diverticulitis for the last 10 years. She had 7 episodes so for in the last one was 1 in March of this year and was treated with antivirals for almost 6 weeks. Currently she is doing well. She is contemplating elective sigmoid colectomy and has seen Singh last month. PROCEDURE PERFORMED: Colonoscopy. PREOPERATIVE DIAGNOSIS: Acute recurrent diverticulitis. IV sedation per Anesthesia. PROCEDURE: After informed consent was obtained, the patient, was brought into the endoscopy unit. IV sedation was administered by Anesthesia under continuous monitoring. Digital rectal examination was normal. Initially the Olympus CF-160 flexible video colonoscope was then inserted in the rectum, gradually advanced into the cecum without any difficulty. Careful examination was performed as the scope was gradually being withdrawn. Ileocecal valve and the appendiceal orifice were visualized and appeared normal. Prep was excellent. Mucosa of the cecum, ascending colon, transverse colon, descending colon, sigmoid colon, and rectum appeared normal. Retroflexion was performed in the rectum and no lesions were seen. The patient tolerated the procedure well. IMPRESSION: Scattered sigmoid diverticulosis with mild patchy areas of erythema noted in the sigmoid colon No evidence of colorectal neoplasia RECOMMENDATIONS: Findings of this examination were discussed with the patient as well as a family. She was advised to be a high-fiber diet and take fiber supplements a regular basis.. The patient in colonoscopy in 10 years.
[2022-06-16 16:15] VITALS: BP 114/75; PULSE 77; RESP 17
== END 2022-06-16 16:20 | disposition home or self-care (01) ==
LOC: ORWHC2ENDO 12:41
PROVIDERS: ATTEND Internal Medicine Gastroenterology
DX: K57.30 Diverticulosis of large intestine without perforation or abscess without bleeding (principal); K21.9 Gastro-esophageal reflux disease without esophagitis; E66.01 Morbid (severe) obesity due to excess calories; Z68.42 Body mass index [BMI] 45.0-49.9, adult; E07.9 Disorder of thyroid, unspecified; Z88.5 Allergy status to narcotic agent; Z79.899 Other long term (current) drug therapy; Z79.890 Hormone replacement therapy; Z88.6 Allergy status to analgesic agent; Z82.49 Family history of ischemic heart disease and other diseases of the circulatory system
CPT/HCPCS: 81025; 45378; J2704

== ENCOUNTER 2022-07-19 09:03 | Inpatient (IN) | payer MEDICAID ==
[2022-07-19] MEDS ORDERED: SODIUM CHLORIDE 0.9% 500 ML 500 ML IV STA (10:00)
--- NOTE | 2022-07-19 10:04 | ED ---
Dizziness HPI - General Chief Complaint: Dizziness Stated Complaint: Dizzy,jaw pain,heart burn Time Seen by Provider: 07/19/22 09:30 Source: patient, RN notes reviewed Mode of arrival: ambulatory Limitations: no limitations - History of Present Illness Initial Comments: 56-year-old female who had a recent negative workup for heart disease for clearance for diverticular surgery which she canceled who presents with complains the onset of dizziness lightheadedness while driving on the way to work today she also had some left-sided face and jaw pain. She also has nausea some vomiting with some shaking he got to work and appear to be pale per her coworker. The blood pressure 144/100 and work which is somewhat high for her. She states the discomfort has improved. She does not feel the other symptoms at this time. No recent fevers chills nausea vomiting sweats no overt chest pain palpitations no focal neurological deficits. MD Complaint: dizziness, lightheadedness, other - Related Data Home Medications Medication Instructions Recorded Confirmed Levothyroxine Sodium [Synthroid] 50 mcg PO DAILY 04/12/22 07/19/22 Omeprazole 40 mg PO DAILY 04/12/22 07/19/22 Cholecalciferol [Vitamin D3 (125 125 mcg PO DAILY 07/19/22 07/19/22 Mcg = 5000 Iu)] Citalopram Hydrobromide [CeleXA] 20 mg PO DAILY 07/19/22 07/19/22 L.acidoph,Paracasei, B.lactis 1 cap PO DAILY 07/19/22 07/19/22 [Probiotic] Vitamin B Complex 1 cap PO DAILY 07/19/22 07/19/22 Previous Rx's Medication Instructions Recorded Ondansetron Odt [Zofran Odt] 4 mg PO Q8HR PRN #30 tab 04/17/22 Allergies Allergy/AdvReac Type Severity Reaction Status Date / Time hydrocodone [From Vicodin] AdvReac Nausea & Verified 07/19/22 09:13 Vomiting Review of Systems ROS Statement: Those systems with pertinent positive or pertinent negative responses have been documented in the HPI. ROS Other: All systems not noted in ROS Statement are negative. Past Medical History Past Medical History: GERD/Reflux, Osteoarthritis (OA), Pneumonia, Thyroid Disorder Additional Past Medical History / Comment(s): Diverticulitis , migraines, History of Any Multi-Drug Resistant Organisms: None Reported Past Surgical History: Cholecystectomy, Orthopedic Surgery, Uterine Ablation Additional Past Surgical History / Comment(s): left knee arthoscopy surgery Past Anesthesia/Blood Transfusion Reactions: No Reported Reaction Past Psychological History: Anxiety Smoking Status: Never smoker Past Alcohol Use History: None Reported Past Drug Use History: None Reported - Past Family History Father Family Medical History: Deep Vein Thrombosis (DVT) General Exam - General Exam Comments Initial Comments: This is a well-developed well-nourished awake alert oriented 4 female Limitations: no limitations General appearance: alert, in no apparent distress Head exam: Present: atraumatic, normocephalic, normal inspection Eye exam: Present: normal appearance, PERRL, EOMI. Absent: scleral icterus, conjunctival injection, periorbital swelling ENT exam: Present: normal exam, mucous membranes moist Neck exam: Present: normal inspection, full ROM, other (No stridor JVD or bruits). Absent: tenderness, meningismus, lymphadenopathy Respiratory exam: Present: normal lung sounds bilaterally. Absent: respiratory distress, wheezes, rales, rhonchi, stridor Cardiovascular Exam: Present: regular rate, normal rhythm, normal heart sounds. Absent: systolic murmur, diastolic murmur, rubs, gallop, clicks GI/Abdominal exam: Present: soft, normal bowel sounds. Absent: distended, tenderness, guarding, rebound, rigid, bruit, pulsatile mass Extremities exam: Present: normal inspection, full ROM, normal capillary refill. Absent: tenderness, pedal edema, joint swelling, calf tenderness Back exam: Present: normal inspection Neurological exam: Present: alert, oriented X3, CN II-XII intact Psychiatric exam: Present: normal affect, normal mood Skin exam: Present: warm, dry, intact, normal color. Absent: rash Course Vital Signs 07/19/22 07/19/22 09:11 11:47 Temperature 98.1 F Pulse Rate 86 80 Respiratory 16 16 Rate Blood Pressure 138/78 115/73 O2 Sat by Pulse 95 97 Oximetry EKG Findings - EKG Results: EKG: interpreted by ERMD, sinus rhythm (/Oh to 84. Interval 191 QRS duration 88 QT/QTC 365/406 low-voltage nonspecific anterior configuration also inferior changes seen compared with EKG dated 05/02/22 showing no changes.) Medical Decision Making - Medical Decision Making I did reevaluate patient multiple occasions she started developing nausea. No definitive changes seen on EKG monitoring however atypical cardiac presentation as suspected. I did discuss the case with Dr. Fisher patient be admitted for inpatient evaluation and treatment cardiology will be consulted. Patient has received IV magnesium. - Lab Data Result diagrams: 07/19/22 10:24 07/19/22 10:24 Lab Results 07/19/22 07/19/22 07/19/22 Range/Units 10:24 10:24 10:24 WBC 8.1 (3.8-10.6) k/uL RBC 4.38 (3.80-5.40) m/uL Hgb 13.1 (11.4-16.0) gm/dL Hct 40.5 (34.0-46.0) % MCV 92.5 (80.0-100.0) fL MCH 29.9 (25.0-35.0) pg MCHC 32.4 (31.0-37.0) g/dL RDW 13.8 (11.5-15.5) % Plt Count 296 (150-450) k/uL MPV 8.1 Neutrophils % 78 % Lymphocytes % 14 % Monocytes % 5 % Eosinophils % 1 % Basophils % 0 % Neutrophils # 6.3 (1.3-7.7) k/uL Lymphocytes # 1.2 (1.0-4.8) k/uL Monocytes # 0.4 (0-1.0) k/uL Eosinophils # 0.1 (0-0.7) k/uL Basophils # 0.0 (0-0.2) k/uL Sodium 135 L (137-145) mmol/L Potassium 4.6 (3.5-5.1) mmol/L Chloride 100 (98-107) mmol/L Carbon Dioxide 26 (22-30) mmol/L Anion Gap 9 mmol/L BUN 12 (7-17) mg/dL Creatinine 0.87 (0.52-1.04) mg/dL Est GFR (CKD-EPI)AfAm 88 (>60 ml/min/1.73 sqM) Est GFR (CKD-EPI)NonAf 76 (>60 ml/min/1.73 sqM) Glucose 134 H (74-99) mg/dL Plasma Lactic Acid Ricardo 1.7 (0.7-2.0) mmol/L Calcium 9.5 (8.4-10.2) mg/dL Magnesium 1.4 L (1.6-2.3) mg/dL Total Bilirubin 0.4 (0.2-1.3) mg/dL AST 22 (14-36) U/L ALT 17 (4-34) U/L Alkaline Phosphatase 90 (38-126) U/L Creatine Kinase 47 (30-135) U/L Troponin I (0.000-0.034) ng/mL Total Protein 7.2 (6.3-8.2) g/dL Albumin 4.0 (3.5-5.0) g/dL Urine Color Urine Appearance (Clear) Urine pH (5.0-8.0) Ur Specific [place] (1.001-1.035) Urine Protein (Negative) Urine Glucose (UA) (Negative) Urine Ketones (Negative) Urine Blood (Negative) Urine Nitrite (Negative) Urine Bilirubin (Negative) Urine Urobilinogen (<2.0) mg/dL Ur Leukocyte Esterase (Negative) Urine RBC (0-5) /hpf Urine WBC (0-5) /hpf Ur Squamous Epith Cells (0-4) /hpf Urine Bacteria (None) /hpf Hyaline Casts (0-2) /lpf Urine Mucus (None) /hpf Coronavirus (PCR) (Not Detectd) Influenza Type A RNA (Not Detectd) Influenza Type B (PCR) (Not Detectd) 07/19/22 07/19/22 07/19/22 Range/Units 10:24 11:05 11:05 WBC (3.8-10.6) k/uL RBC (3.80-5.40) m/uL Hgb (11.4-16.0) gm/dL Hct (34.0-46.0) % MCV (80.0-100.0) fL MCH (25.0-35.0) pg MCHC (31.0-37.0) g/dL RDW (11.5-15.5) % Plt Count (150-450) k/uL MPV Neutrophils % % Lymphocytes % % Monocytes % % Eosinophils % % Basophils % % Neutrophils # (1.3-7.7) k/uL Lymphocytes # (1.0-4.8) k/uL Monocytes # (0-1.0) k/uL Eosinophils # (0-0.7) k/uL Basophils # (0-0.2) k/uL Sodium (137-145) mmol/L Potassium (3.5-5.1) mmol/L Chloride (98-107) mmol/L Carbon Dioxide (22-30) mmol/L Anion Gap mmol/L BUN (7-17) mg/dL Creatinine (0.52-1.04) mg/dL Est GFR (CKD-EPI)AfAm (>60 ml/min/1.73 sqM) Est GFR (CKD-EPI)NonAf (>60 ml/min/1.73 sqM) Glucose (74-99) mg/dL Plasma Lactic Acid Ricardo (0.7-2.0) mmol/L Calcium (8.4-10.2) mg/dL Magnesium (1.6-2.3) mg/dL Total Bilirubin (0.2-1.3) mg/dL AST (14-36) U/L ALT (4-34) U/L Alkaline Phosphatase (38-126) U/L Creatine Kinase (30-135) U/L Troponin I <0.012 (0.000-0.034) ng/mL Total Protein (6.3-8.2) g/dL Albumin (3.5-5.0) g/dL Urine Color Yellow Urine Appearance Cloudy H (Clear) Urine pH 5.5 (5.0-8.0) Ur Specific [place] 1.028 (1.001-1.035) Urine Protein Trace H (Negative) Urine Glucose (UA) Negative (Negative) Urine Ketones Negative (Negative) Urine Blood Negative (Negative) Urine Nitrite Negative (Negative) Urine Bilirubin Negative (Negative) Urine Urobilinogen <2.0 (<2.0) mg/dL Ur Leukocyte Esterase Small H (Negative) Urine RBC 1 (0-5) /hpf Urine WBC 2 (0-5) /hpf Ur Squamous Epith Cells 7 H (0-4) /hpf Urine Bacteria Rare H (None) /hpf Hyaline Casts 33 H (0-2) /lpf Urine Mucus Few H (None) /hpf Coronavirus (PCR) (Not Detectd) Influenza Type A RNA Not Detected (Not Detectd) Influenza Type B (PCR) Not Detected (Not Detectd) 07/19/22 Range/Units 11:05 WBC (3.8-10.6) k/uL RBC (3.80-5.40) m/uL Hgb (11.4-16.0) gm/dL Hct (34.0-46.0) % MCV (80.0-100.0) fL MCH (25.0-35.0) pg MCHC (31.0-37.0) g/dL RDW (11.5-15.5) % Plt Count (150-450) k/uL MPV Neutrophils % % Lymphocytes % % Monocytes % % Eosinophils % % Basophils % % Neutrophils # (1.3-7.7) k/uL Lymphocytes # (1.0-4.8) k/uL Monocytes # (0-1.0) k/uL Eosinophils # (0-0.7) k/uL Basophils # (0-0.2) k/uL Sodium (137-145) mmol/L Potassium (3.5-5.1) mmol/L Chloride (98-107) mmol/L Carbon Dioxide (22-30) mmol/L Anion Gap mmol/L BUN (7-17) mg/dL Creatinine (0.52-1.04) mg/dL Est GFR (CKD-EPI)AfAm (>60 ml/min/1.73 sqM) Est GFR (CKD-EPI)NonAf (>60 ml/min/1.73 sqM) Glucose (74-99) mg/dL Plasma Lactic Acid Ricardo (0.7-2.0) mmol/L Calcium (8.4-10.2) mg/dL Magnesium (1.6-2.3) mg/dL Total Bilirubin (0.2-1.3) mg/dL AST (14-36) U/L ALT (4-34) U/L Alkaline Phosphatase (38-126) U/L Creatine Kinase (30-135) U/L Troponin I (0.000-0.034) ng/mL Total Protein (6.3-8.2) g/dL Albumin (3.5-5.0) g/dL Urine Color Urine Appearance (Clear) Urine pH (5.0-8.0) Ur Specific [place] (1.001-1.035) Urine Protein (Negative) Urine Glucose (UA) (Negative) Urine Ketones (Negative) Urine Blood (Negative) Urine Nitrite (Negative) Urine Bilirubin (Negative) Urine Urobilinogen (<2.0) mg/dL Ur Leukocyte Esterase (Negative) Urine RBC (0-5) /hpf Urine WBC (0-5) /hpf Ur Squamous Epith Cells (0-4) /hpf Urine Bacteria (None) /hpf Hyaline Casts (0-2) /lpf Urine Mucus (None) /hpf Coronavirus (PCR) Not Detected (Not Detectd) Influenza Type A RNA (Not Detectd) Influenza Type B (PCR) (Not Detectd) - Radiology Data Radiology results: report reviewed (Imaging reviewed as well as report no acute findings), image reviewed Disposition Clinical Impression: Hypomagnesemia, Nausea, Facial pain, atypical Disposition: ADMITTED IP TO THIS [facility] Condition: Stable Referrals: Amanda Gonzalez MD [Primary Care Provider] - 1-2 days Decision Date: 07/19/22 Decision Time: 12:30
[2022-07-19 10:40] LABS: Basophils % (A) 0 %; Eosinophils # (A) 0.1 k/uL (0-0.7); Eosinophils % (A) 1 %; HCT 40.5 % (34.0-46.0); HGB 13.1 gm/dL (11.4-16.0); Lymphocytes # (A) 1.2 k/uL (1.0-4.8); Lymphocytes % (A) 14 %; MCH 29.9 pg (25.0-35.0); MCHC 32.4 g/dL (31.0-37.0); MCV 92.5 fL (80.0-100.0); Mean Platelet Volume 8.1; Monocytes # (A) 0.4 k/uL (0-1.0); Monocytes % (A) 5 %; Neutrophils # (A) 6.3 k/uL (1.3-7.7); Neutrophils % (A) 78 %; Platelet Count 296 k/uL (150-450); RBC 4.38 m/uL (3.80-5.40); RDW 13.8 % (11.5-15.5); WBC 8.1 k/uL (3.8-10.6)
[2022-07-19 10:48] LABS: Calcium 9.5 mg/dL (8.4-10.2); Magnesium 1.4 mg/dL (1.6-2.3); Potassium 4.6 mmol/L (3.5-5.1); Total Bilirubin 0.4 mg/dL (0.2-1.3); Total Protein 7.2 g/dL (6.3-8.2)
[2022-07-19] MEDS ORDERED: MAGNESIUM SULFATE-D5W PMX 1 GM in DEXTROSE/WATER 1 100ML.BAG IVPB ONE (11:00)
[2022-07-19 11:23] LABS: Appearance,Urine Cloudy (Clear); Bacteria,Urine Rare /hpf; Bilirubin,Urine Negative (Negative); Blood,Urine Negative (Negative); Color,Urine Yellow; Glucose,Urine (UA) Negative (Negative); Hyaline Casts,Urine 33 /lpf (0-2); Ketones,Urine Negative (Negative); Leukocyte Esterase,Urine Small (Negative); Mucus,Urine Few /hpf; Nitrite,Urine Negative (Negative); PH, Urine 5.5 (5.0-8.0); Protein,Urine Trace (Negative); RBC,Urine 1 /hpf (0-5); Specific Gravity,Urine 1.028 (1.001-1.035); Squamous Epithelial Cell,Urine 7 /hpf (0-4); Urobilinogen,Urine <2.0 mg/dL (<2.0); WBC,Urine 2 /hpf (0-5)
--- NOTE | 2022-07-19 12:20 | XR ---
EXAMINATION TYPE: XR chest 2V DATE OF EXAM: 07/19/2022 COMPARISON: NONE TECHNIQUE: PA and lateral views submitted. HISTORY: Dizziness FINDINGS: The lungs are clear and there is no pneumothorax, pleural effusion, or focal pneumonia. Heart size normal. Hyperinflation is of the lungs. Hypertrophic changes of the spine. Arthropathy of the shoulde rs. Small 6 mm nodule right mid lung likely related to granuloma. IMPRESSION: 1. No acute process.
[2022-07-19] MEDS ORDERED: ONDANSETRON 4 MG/2 ML VIAL IVP STA (12:30)
[2022-07-19] MEDS ORDERED: NITROGLYCERIN SL TABS 0.4 MG TAB SUBLINGUAL PRN (12:58)
[2022-07-19] MEDS ORDERED: ONDANSETRON ODT 4 MG TAB PO PRN (12:59)
[2022-07-19] MEDS: SODIUM CHLORIDE 0.9% 1,000 ML IV SCH (14:04)
[2022-07-19] MEDS ORDERED: ACETAMINOPHEN TAB 325 MG TAB PO PRN (18:50)
[2022-07-19] MEDS ORDERED: LORATADINE 10 MG TAB PO STA (18:52)
[2022-07-19] MEDS ORDERED: SODIUM CHLORIDE 0.65% NASAL SPRAY 44 ML BTL NASAL PRN (18:52)
[2022-07-19] MEDS: Acetaminophen-Codeine 300-30mg TAB PO PRN (19:04)
--- NOTE | 2022-07-19 21:19 | P.HPIM ---
History of Present Illness H&P Date: 07/19/22 Chief Complaint: left jaw pain Patient is a pleasant 56-year-old female with a known history of osteoarthritis, GERD, hypothyroidism, anxiety and recent history of colonoscopy due to recurrent diverticulitis presents to ER with complaints of dizziness and lightheadedness and left sided face and jaw pain while she was driving to her office. Patient states that left jaw pain is 10 out of 10 in severity associated nausea. Patient started having symptoms last night and took Zofran for nausea and Tylenol and slept and woke up around 4 AM. Patient felt she was getting better and on the way to the office she felt very dizzy and shaky. When she reached the office, was noticed by her manager unit that she is looked very pale and shaky and by the time jaw pain again came down to 3 out of 10. Patient was brought to ER. Patient advised denied any complaints of slurred speech or facial droop or blurred vision. Denied any focal weakness. No seizures were witnessed. No comp laints chest pain or shortness of breath. Patient felt extremely tired after that. She also states that she is in a life stressful situation. She has recent stress echocardiogram for surgical clearance of her diverticular surgery. She does have history of migraine headaches and occasionally takes sumatriptan. But her pain does not seem to be similar to aura prior to her migraine headaches. Chest x-ray showed no acute process EKG showed sinus rhythm with low voltage in precordial leads. Laboratory data showed WBC 8.1 hemoglobin 13.1 platelets 296 Sodium 135 potassium 4.6 chloride 100 bicarb is 26 BUN 12 and creatinine 0.87 and blood sugar is 134 and magnesium 1.4 Troponin x3 negative Urinalysis showed cloudy trace protein and small leukocyte esterase Coronavirus PCR and influenza a and B-. Review of Systems Constitutional: Patient denies any fever or chills . no Generalized weakness. Abdomen: Patient denied any nausea or vomiting or abd. pain Cardiovascular: Patient denies any chest pain or short of breath no palpitations. Respiratory: patient denied any cough . no sputum production. No shortness of breath Neurologic: Patient denied any numbness or tingling headache. Patient does have left facial and jaw pain Musculoskeletal: Patient denies any complaints of joint swelling or deformity. Skin: Negative Psychiatric: Negative Endocrine: No heat or cold intolerance. No recent weight gain. Genitourinary: No dysuria or hematuria. All other 14 point ROS negative except the above Past Medical History Past Medical History: GERD/Reflux, Osteoarthritis (OA), Pneumonia, Thyroid Disorder Additional Past Medical History / Comment(s): Diverticulitis , migraines, History of Any Multi-Drug Resistant Organisms: None Reported Past Surgical History: Cholecystectomy, Orthopedic Surgery, Uterine Ablation Additional Past Surgical History / Comment(s): left knee arthoscopy surgery Past Anesthesia/Blood Transfusion Reactions: No Reported Reaction Past Psychological History: Anxiety Smoking Status: Never smoker Past Alcohol Use History: None Reported Past Drug Use History: None Reported - Past Family History Father Family Medical History: Deep Vein Thrombosis (DVT) Medications and Allergies Home Medications Medication Instructions Recorded Confirmed Type Levothyroxine Sodium [Synthroid] 50 mcg PO DAILY 04/12/22 07/19/22 History Omeprazole 40 mg PO DAILY 04/12/22 07/19/22 History Ondansetron Odt [Zofran Odt] 4 mg PO Q8HR PRN #30 tab 04/17/22 07/19/22 Rx Cholecalciferol [Vitamin D3 (125 125 mcg PO DAILY 07/19/22 07/19/22 History Mcg = 5000 Iu)] Citalopram Hydrobromide [CeleXA] 20 mg PO DAILY 07/19/22 07/19/22 History L.acidoph,Paracasei, B.lactis 1 cap PO DAILY 07/19/22 07/19/22 History [Probiotic] Vitamin B Complex 1 cap PO DAILY 07/19/22 07/19/22 History Allergies Allergy/AdvReac Type Severity Reaction Status Date / Time hydrocodone [From Vicodin] AdvReac Nausea & Verified 07/19/22 09:13 Vomiting Physical Exam Vitals: Vital Signs Temp Pulse Resp BP Pulse Ox 07/19/22 11:47 80 16 115/73 97 07/19/22 09:11 98.1 F 86 16 138/78 95 Intake and Output 07/18/22 07/19/22 07/19/22 22:59 06:59 14:59 Other: Weight 127.006 kg PHYSICAL EXAMINATION: Patient is lying in the bed comfortably, no acute distress, awake alert and oriented.. HEENT: Normocephalic. Neck is supple. Pupils reactive. Nostrils clear. Oral cavity is moist. Neck reveals no JVD, carotid bruits, or thyromegaly. CHEST EXAMINATION: Trachea is central. Symmetrical expansion. Lung allen clear to auscultation and percussion. CARDIAC: Normal S1, S2 with no gallops. No murmurs ABDOMEN: Soft. Bowel sounds present. Nontender. No organomegaly. No abdominal bruits. Extremities: reveal no edema. No clubbing or cyanosis Neurologically awake, alert, oriented x3 with well-coordinated movements. No focal deficits noted Skin: No rash or skin lesions. Psychiatric: Coperative. Nonsuicidal, Musculoskeletal: No joint swelling or deformity. Normal range of motion. Results CBC & Chem 7: 07/19/22 10:24 07/20/22 07:37 Labs: Abnormal Lab Results - Last 24 Hours (Table) 07/19/22 07/19/22 Range/Units 10:24 11:05 Sodium 135 L (137-145) mmol/L Glucose 134 H (74-99) mg/dL Magnesium 1.4 L (1.6-2.3) mg/dL Urine Appearance Cloudy H (Clear) Urine Protein Trace H (Negative) Ur Leukocyte Esterase Small H (Negative) Ur Squamous Epith Cells 7 H (0-4) /hpf Urine Bacteria Rare H (None) /hpf Hyaline Casts 33 H (0-2) /lpf Urine Mucus Few H (None) /hpf Thrombosis Risk Factor Assmnt - DVT/VTE Prophylaxis DVT/VTE Prophylaxis: Pharmacologic Prophylaxis ordered Assessment and Plan Assessment: Dizziness and lightheadedness associated with severe left jaw pain and facial pain. Possible related to acute Sinusisitis / tooth pain. Rule out ACS and arrhythmia. Hypomagnesemia History of recurrent diverticulitis and is scheduled for surgery.. Patient had cardiac work-up for surgical clearance. Hypothyroidism Anxiety/depression GERD Osteoarthritis Morbid obesity BMI 45.2 History of migraine headaches DVT prophylax with heparin subcu Plan: Patient returned on IV hydration. Telemetry monitoring. Continue with pain management with Tylenol 3. Rule out arrhythmia. Cardiology was consulted for evaluation. Patient states that she had stress echocardiogram recently. No evidence of infection. Chest x-ray and urinalysis negative for infection. Continue with home medications and follow-up closely. Time with Patient: Greater than 30
[2022-07-20] MEDS: Acetaminophen-Codeine 300-30mg TAB PO PRN (05:43)
[2022-07-20] MEDS ORDERED: LEVOTHYROXINE 50 MCG TAB PO SCH (06:30)
[2022-07-20] MEDS: SODIUM CHLORIDE 0.9% 1,000 ML IV SCH ×2 (06:52→09:01)
[2022-07-20] MEDS ORDERED: PANTOPRAZOLE 40 MG TABLET PO SCH (07:30)
[2022-07-20 08:24] LABS: African American GFR (CKD) >90 (>60 ml/min/1.73 sqM); Anion Gap 8 mmol/L; Blood Urea Nitrogen 8 mg/dL (7-17); Calcium 8.4 mg/dL (8.4-10.2); Carbon Dioxide 27 mmol/L (22-30); Chloride 101 mmol/L (98-107); Glucose 93 mg/dL (74-99); Non-African American GFR(CKD) 82 (>60 ml/min/1.73 sqM); Potassium 4.2 mmol/L (3.5-5.1); Sodium 136 mmol/L (137-145)
[2022-07-20 08:50] VITALS: TEMP 98.4
[2022-07-20] MEDS: ENOXAPARIN 40 MG/0.4 ML SYRINGE SQ SCH ×2 (08:58→09:00)
[2022-07-20] MEDS ORDERED: ASPIRIN 325 MG TAB PO SCH (09:00)
[2022-07-20] MEDS ORDERED: CHOLECALCIFEROL 125 MCG (5000 IU) TABLET PO SCH (09:00)
[2022-07-20] MEDS ORDERED: NON FORMULARY DRUG (Vitamin B Complex [Vitamin B Complex] 1 EACH Capsule) PO SCH (09:00)
[2022-07-20] MEDS ORDERED: CITALOPRAM HYDROBROMIDE 20 MG TAB PO SCH (09:00)
[2022-07-20] MEDS ORDERED: LACTOBACILLUS ACIDOPH & BULGAR 1 EACH PACKET PO SCH (09:00)
--- NOTE | 2022-07-20 09:16 | P.CRDCN ---
History of Present Illness History of present illness: HISTORY OF PRESENTING ILLNESS This is a pleasant 56-year-old female past medical history significant for hypothyroidism, diverticulitis, GERD, obesity. She has recently seen Dr. Kaplan in the office for preoperative testing. We have been asked to see in consultation for atypical facial pain and dizziness. She presents to the ER with episode of left sided jaw discomfort and dizziness. She states over the past couple days she has noted left sided jaw pain. It was initially 10/10, aching. It did not come on by exertion or activity. It was non-radiating. She had some heart burn as well, but Tums helped relieve her heartburn. She tried ibuprofen and tylenol with minimal relief. SHe used a heating pad and had improvement in her jaw pain. She denied any chest pain. She states her left sided jaw pain would come and go. She does have sinus drainage and has had similar pain in the right jaw before. She went to work and had episode of dizziness and was stopped by a co-worker that she looked pale. Her BP was checked 140s/100 and presented to the ER for further evaluation. She had no chest pain, syncope, or near syncope, lightheadedness. She did not lose consciousness. She denied any abdominal pain, vomiting, fever, cough or chills. She denies any history of CAD, [place], stroke, diabetes, dyslipidemia. She is a non-smoker. No family history of heart disease. DIAGNOSTICS * EKG reveals Sinus rhythm HR 84, low QRS voltage noted, non-specific ST-T wave abnormalities. Prior EKG with similar findings, no acute changes. * Telemetry tracings indicate sinus rhythm HR 70s-80s no arrhythmia noted * Echocardiogram 06/20/2022 revealed EF 5560 %, moderate tricuspid regurgitation, RVSP of 33 mmHg. * Stress echocardiogram test in the office 06/21/2022 she exercised for just over 6 minutes with normal echo response and no inducible ischemia. * Chest xray no acute cardiopulmonary process. * Laboratory reviewed, CBC unremarkable, troponin negative x 3, sodium 135, potassium 4.6, BUN 12, serum creatinine 0.8, magnesium 1.4 * Current home cardiac medications include none REVIEW OF SYSTEMS At the time of my exam: CONSTITUTIONAL: Denies fever or chills. CARDIOVASCULAR: Denies chest pain, shortness of breath, orthopnea, PND or palpitations. RESPIRATORY: Denies cough. GASTROINTESTINAL: Denies abdominal pain, diarrhea, constipation, nausea or vomiting. MUSCULOSKELETAL: +left sided jaw pain NEUROLOGIC: Denies numbness, tingling, headacbe or weakness. ENDOCRINE: Denies fatigue, weight change, polydipsia or polyurina. GENITOURINARY: Denies burning, hematuria or urgency with micturation. HEMATOLOGIC: Denies history of anemia or bleeding. PHYSICAL EXAMINATION Vitals reviewed CONSTITUTIONAL: No apparent distress. HEENT: Head is normocephalic. Pupils are equal, round. Sclerae anicteric. Mucous membranes of the mouth are moist. No JVD. No carotid bruit. CHEST EXAMINATION: Lungs are clear to auscultation. No chest wall tenderness is noted on palpation or with deep breathing. HEART EXAMINATION: Regular rate and rhythm. S1, S2 heard. No murmurs, gallops or rub. ABDOMEN: Soft, nontender. Positive bowel sounds. EXTREMITIES: 2+ peripheral pulses, no lower extremity edema and no calf tenderness. NEUROLOGIC EXAMINATION: Patient is awake, alert and oriented x3. ASSESSMENT Left sided facial pain, with relief from heating pad Episode of dizziness, resolved History of hypothyroidism History of GERD History of diverticulitis Obesity PLAN Acute coronary syndrome has been ruled out. Patient's symptoms of left sided jaw pain appears to be non-cardiac etiology. Recent echocardiogram with normal EF 5560 % ,and Stress echo in the office 06/21/2022 with no inducible ischemia. From a cardiology perspectice, no further inpatient workup indicated at this time. Please reach out with any further questions or concerns. Nurse practitioner note has been reviewed by physician. Signing provider agrees with the documented findings, assessment, and plan of care. Past Medical History Past Medical History: GERD/Reflux, Osteoarthritis (OA), Pneumonia, Thyroid Disorder Additional Past Medical History / Comment(s): Diverticulitis , migraines, History of Any Multi-Drug Resistant Organisms: None Reported Past Surgical History: Cholecystectomy, Orthopedic Surgery, Uterine Ablation Additional Past Surgical History / Comment(s): left knee arthoscopy surgery Past Anesthesia/Blood Transfusion Reactions: No Reported Reaction Past Psychological History: Anxiety Smoking Status: Never smoker Past Alcohol Use History: None Reported Past Drug Use History: None Reported - Past Family History Father Family Medical History: Deep Vein Thrombosis (DVT) Medications and Allergies Home Medications Medication Instructions Recorded Confirmed Type Levothyroxine Sodium [Synthroid] 50 mcg PO DAILY 04/12/22 07/19/22 History Omeprazole 40 mg PO DAILY 04/12/22 07/19/22 History Ondansetron Odt [Zofran Odt] 4 mg PO Q8HR PRN #30 tab 04/17/22 07/19/22 Rx Cholecalciferol [Vitamin D3 (125 125 mcg PO DAILY 07/19/22 07/19/22 History Mcg = 5000 Iu)] Citalopram Hydrobromide [CeleXA] 20 mg PO DAILY 07/19/22 07/19/22 History L.acidoph,Paracasei, B.lactis 1 cap PO DAILY 07/19/22 07/19/22 History [Probiotic] Vitamin B Complex 1 cap PO DAILY 07/19/22 07/19/22 History Allergies Allergy/AdvReac Type Severity Reaction Status Date / Time hydrocodone [From Vicodin] AdvReac Nausea & Verified 07/19/22 09:13 Vomiting Physical Exam Vitals: Vital Signs Temp Pulse Pulse Resp BP BP Pulse Ox 07/20/22 04:00 98 F 78 12 107/63 95 07/20/22 00:00 98.2 F 79 12 117/65 95 07/19/22 20:00 97.8 F 81 12 121/69 93 L 07/19/22 18:02 78 18 128/81 95 07/19/22 18:00 98.8 F 80 17 136/92 93 L 07/19/22 11:47 80 16 115/73 97 07/19/22 09:11 98.1 F 86 16 138/78 95 Intake and Output 07/19/22 07/20/22 07/20/22 22:59 06:59 14:59 Other: Voiding Method Toilet Toilet # Voids 2 Weight 127.006 kg Results 07/19/22 10:24 07/20/22 07:37 Cardiac Enzymes 07/19/22 07/19/22 07/19/22 Range/Units 10:24 10:24 14:10 AST 22 (14-36) U/L Troponin I <0.012 <0.012 (0.000-0.034) ng/mL 07/19/22 Range/Units 16:41 AST (14-36) U/L Troponin I <0.012 (0.000-0.034) ng/mL CBC 07/19/22 Range/Units 10:24 WBC 8.1 (3.8-10.6) k/uL RBC 4.38 (3.80-5.40) m/uL Hgb 13.1 (11.4-16.0) gm/dL Hct 40.5 (34.0-46.0) % Plt Count 296 (150-450) k/uL Comprehensive Metabolic Panel 07/19/22 Range/Units 10:24 Sodium 135 L (137-145) mmol/L Potassium 4.6 (3.5-5.1) mmol/L Chloride 100 (98-107) mmol/L Carbon Dioxide 26 (22-30) mmol/L BUN 12 (7-17) mg/dL Creatinine 0.87 (0.52-1.04) mg/dL Glucose 134 H (74-99) mg/dL Calcium 9.5 (8.4-10.2) mg/dL AST 22 (14-36) U/L ALT 17 (4-34) U/L Alkaline Phosphatase 90 (38-126) U/L Total Protein 7.2 (6.3-8.2) g/dL Albumin 4.0 (3.5-5.0) g/dL Current Medications Generic Name Dose Route Start Last Admin Trade Name Freq PRN Reason Stop Dose Admin Acetaminophen 650 mg 07/19/22 18:50 Acetaminophen Tab 325 Mg Tab PO Q6HR PRN Fever and/ or Pain Acetaminophen/Codeine Phosphate 1 each 07/19/22 18:52 07/20/22 05:43 Acetaminophen-Codeine 300-30mg Tab PO 1 each Q6HR PRN Administration Pain Aspirin 325 mg 07/20/22 09:00 Aspirin 325 Mg Tab PO DAILY GO Cholecalciferol 125 mcg 07/20/22 09:00 Cholecalciferol 125 Mcg (5000 Iu) Tablet PO DAILY GO Citalopram Hydrobromide 20 mg 07/20/22 09:00 Citalopram Hydrobromide 20 Mg Tab PO DAILY GO Enoxaparin Sodium 40 mg 07/20/22 09:00 Enoxaparin 40 Mg/0.4 Ml Syringe SQ DAILY GO Sodium Chloride 1,000 mls @ 100 mls/hr 07/19/22 13:00 07/20/22 06:52 Saline 0.9% IV Not Given .Q10H GO Lactobacillus Acidoph/Bulgaricus 1 each 07/20/22 09:00 Lactobacillus Acidoph & Bulgar 1 Each Packet PO DAILY GO Levothyroxine Sodium 50 mcg 07/20/22 06:30 07/20/22 06:35 Levothyroxine 50 Mcg Tab PO 50 mcg DAILY@0630 GO Administration Nitroglycerin 0.4 mg 07/19/22 12:58 Nitroglycerin Sl Tabs 0.4 Mg Tab SUBLINGUAL Q5M PRN Chest Pain Ondansetron HCl 4 mg 07/19/22 12:59 Ondansetron Odt 4 Mg Tab PO Q8HR PRN Nausea Pantoprazole Sodium 40 mg 07/20/22 07:30 07/20/22 06:35 Pantoprazole 40 Mg Tablet PO 40 mg [id number] GO Administration Sodium Chloride 2 spray 07/19/22 18:52 Sodium Chloride 0.65% Nasal [place] 44 Ml Btl NASAL QID PRN Dry Nasal Passages Intake and Output 07/19/22 07/20/22 07/20/22 22:59 06:59 14:59 Other: Voiding Method Toilet Toilet # Voids 2 Weight 127.006 kg 07/19/22 10:24 07/19/22 10:24
[2022-07-20 11:43] LABS: Glucose,Whole Blood 102 mg/dL (70-110)
[2022-07-20 12:03] VITALS: BP 117/78; PULSE 78; RESP 17
--- NOTE | 2022-07-20 12:40 | CT ---
EXAMINATION TYPE: CT facial bones wo con DATE OF EXAM: 07/20/2022 COMPARISON: None HISTORY: left sided pain CT DLP: 538 mGycm Automated exposure control for dose reduction was used. TECHNIQUE: CT scan of the sinuses is performed without contrast, axial images are obtained, coronal r eformatted images are also reviewed. FINDINGS: The paranasal sinuses including the frontal, ethmoid, sphenoid, and maxillary sinuses bila terally are well-aerated without abnormal opacification. The ostiomeatal complex is patent bilateral ly on the coronal images. Visualized portion of mastoid air cells show no abnormal opacification. The globes are intact bilate rally. IMPRESSION: No obvious abscess seen or bony destructive process noted. Examination is limited by lack of contrast.
[2022-07-20 15:03] LABS: Chol/HDL Ratio 2.78 Ratio; LDL Cholesterol,Calculated 61.4 mg/dL (0.0-131.0)
== END 2022-07-20 15:01 | disposition home or self-care (01) | DRG 880 ==
LOC: EC 09:03 → 3SCARD 12:57
PROVIDERS: ADMIT Internal Medicine; ATTEND Internal Medicine
DX: F41.9 Anxiety disorder, unspecified (principal); Z68.42 Body mass index [BMI] 45.0-49.9, adult; K57.92 Diverticulitis of intestine, part unspecified, without perforation or abscess without bleeding; F32.A Depression, unspecified; Z20.822 Contact with and (suspected) exposure to COVID-19; E83.42 Hypomagnesemia; M19.90 Unspecified osteoarthritis, unspecified site; J32.9 Chronic sinusitis, unspecified; K21.9 Gastro-esophageal reflux disease without esophagitis; E66.01 Morbid (severe) obesity due to excess calories; G43.909 Migraine, unspecified, not intractable, without status migrainosus; R42 Dizziness and giddiness; E03.9 Hypothyroidism, unspecified; Z79.890 Hormone replacement therapy; Z88.5 Allergy status to narcotic agent; Z79.899 Other long term (current) drug therapy; Z90.49 Acquired absence of other specified parts of digestive tract
CPT/HCPCS: 36415; 70486; 71046; 80048; 80053; 80061; 81001; 82550; 83605; 83735; 84443; 84484; 85025; 87502; 87635; 93005; 96365; 96375; 99285

== ENCOUNTER → 2022-07-25 | Outpatient (CLI) | payer MEDICAID ==
--- NOTE | 2022-07-25 09:19 | XR ---
EXAM TYPE: LUMBAR SPINE X RAY SERIES COMPARISON: NONE HISTORY: Pain TECHNIQUE: 4 views are submitted. FINDINGS: Alignment is anatomic. The pedicles are intact. The transverse processes are intact. There is no s pondylolysis or spondylolisthesis. Facet arthropathy involving the lower lumbar spine with hypertrop hic spurring of the lung. Surgical clips in the gallbladder fossa IMPRESSION: 1. Mild multilevel degenerative disc disease with facet arthropathy involving the mid and lower lumba r spine..
--- NOTE | 2022-07-25 09:21 | XR ---
EXAMINATION TYPE: XR facial bones complete DATE OF EXAM: 07/25/2022 COMPARISON: NONE HISTORY: Pain TECHNIQUE: 5 views submitted FINDINGS: Osseous structures. No acute fracture. IMPRESSION: No acute fracture
== END | disposition home or self-care (01) ==
LOC: RADXRYALE 08:52
PROVIDERS: ATTEND Internal Medicine
DX: G54.4 Lumbosacral root disorders, not elsewhere classified (principal); S09.93XA Unspecified injury of face, initial encounter; X58.XXXA Exposure to other specified factors, initial encounter
CPT/HCPCS: 70150; 72110

== ENCOUNTER → 2022-09-27 | Outpatient (CLI) | payer MEDICAID ==
--- NOTE | 2022-09-27 11:59 | XR ---
EXAMINATION TYPE: XR chest 2V DATE OF EXAM: 09/27/2022 COMPARISON: 07/19/2022 TECHNIQUE: PA and lateral views submitted. HISTORY: Cough FINDINGS: The lungs are clear and there is no pneumothorax, pleural effusion, or focal pneumonia. Hypertrophi c and degenerative change of the spine. Limited inspiration. IMPRESSION: 1. No acute process.
== END | disposition home or self-care (01) ==
LOC: RADXRYALE 11:22
PROVIDERS: ATTEND Internal Medicine
DX: J21.0 Acute bronchiolitis due to respiratory syncytial virus (principal)
CPT/HCPCS: 71046

== ENCOUNTER → 2022-11-01 | Outpatient (CLI) | payer MEDICAID ==
[2022-11-01 23:46] LABS: MCH 28.9 pg (27.0-32.0); MCV 93.3 fL (80.0-97.0); Mean Platelet Volume 10.2 fL (9.5-12.2); NRBC Per 100 WBC 0 /100 WBCS (0.0-0.0); Platelet Count 370 X 10*3/uL (140-440); RDW 14.4 % (11.5-14.5); WBC 5.89 X 10*3/uL (4.50-10.00)
[2022-11-02 00:41] LABS: ALT 20 U/L (8-44); AST 19 U/L (13-35); African American GFR (CKD) 79.2 (60.0-200.0); Albumin 4.4 g/dL (3.8-4.9); Albumin/Globulin Ratio 1.41 (1.60-3.17); Alkaline Phosphatase 93 U/L (41-126); BUN/Creat Ratio 17.57 Ratio (12.00-20.00); Blood Urea Nitrogen 16.6 mg/dL (9.0-27.0); Calcium 9.7 mg/dL (8.7-10.3); Carbon Dioxide 26.7 mmol/L (20.0-27.5); Chloride 103 mmol/L (96-109); Globulin 3.1 g/dL (1.6-3.3); Glucose 83 mg/dL (70-110); Non-African American GFR(CKD) 68.3 (60.0-200.0); Potassium 4.7 mmol/L (3.5-5.5); Sodium 140 mmol/L (135-145); Total Bilirubin <0.15 mg/dL (0.30-1.20); Total Protein 7.5 g/dL (6.2-8.2)
== END | disposition home or self-care (01) ==
LOC: LABPAT 14:55
PROVIDERS: ATTEND Surgery Plastic and Reconstructive Surgery
DX: Z01.812 Encounter for preprocedural laboratory examination (principal)
CPT/HCPCS: 80053; 85027

== ENCOUNTER → 2023-01-04 | Outpatient (CLI) | payer MEDICAID ==
--- NOTE | 2023-01-04 20:44 | CT ---
EXAMINATION TYPE: CT abdomen pelvis w con CT DLP: 2702.1 mGycm, Automated exposure control for dose reduction was used. DATE OF EXAM: 01/04/2023 7:22 PM COMPARISON: CT abdomen pelvis most recent from 04/12/2022 CLINICAL INDICATION:Female, 57 years old with history of K57.32 Diverticulitis; Surgery x 1 month ago for diverticulitis. TECHNIQUE: Axial CT of the abdomen and pelvis. Sagittal and coronal reformats were created on a [employer] workstation. Contrast used:100 cc mL of Isovue 300 with IV Contrast, Oral contrast used: with Oral Contrast FINDINGS: LOWER CHEST: Right middle lobe 5 mm pulmonary nodules are stable back to 2020. ABDOMEN LIVER: Unremarkable GALLBLADDER AND BILE DUCTS: The gallbladder is surgically absent. PANCREAS: Unremarkable. SPLEEN: Calcified granuloma. ADRENAL GLANDS: Unremarkable. KIDNEYS AND URETERS: No evidence of hydronephrosis or renal calculus. The ureters are unremarkable. PELVIS Streak limits evaluation the pelvis. BLADDER: Unremarkable REPRODUCTIVE: Unremarkable. ABDOMEN & PELVIS STOMACH AND BOWEL: No evidence of bowel obstruction. Postsurgical changes rectosigmoid colon junction . Appendix is normal. Scattered colonic diverticulosis. PERITONEUM/RETROPERITONEUM: No evidence of pneumoperitoneum or free fluid. VASCULATURE: No evidence of aortic aneurysm. MUSCULOSKELETAL: No acute osseous abnormalities. Mild disc degeneration changes are present throughou t the thoracolumbar spine. Remote left LYMPH NODES: No gross evidence for lymphadenopathy. SOFT TISSUE/ABDOMINAL WALL: Fat-containing umbilical hernia. Posttreatment changes with port site sca rring in the anterior abdomen. IMPRESSION: 1. Postsurgical changes of the rectosigmoid junction and anterior abdominal wall. No evidence for po stop complication or no evidence for organizing fluid collection. 2. No acute abdominal process. 3. Chronic diverticulosis. 4. Fat-containing umbilical hernia. 5. Subacute right rib 8 fracture.
== END | disposition home or self-care (01) ==
LOC: RADCTMAIN 17:32
PROVIDERS: ATTEND Surgery Plastic and Reconstructive Surgery
DX: S22.31XA Fracture of one rib, right side, initial encounter for closed fracture (principal); K57.30 Diverticulosis of large intestine without perforation or abscess without bleeding; K42.9 Umbilical hernia without obstruction or gangrene; K57.32 Diverticulitis of large intestine without perforation or abscess without bleeding; X58.XXXA Exposure to other specified factors, initial encounter; Z98.890 Other specified postprocedural states
CPT/HCPCS: 74177; Q9967

== ENCOUNTER 2023-01-07 10:42 | Emergency (ER) | payer MEDICAID ==
[2023-01-07 10:51] VITALS: BP 137/87; PULSE 87; RESP 18; TEMP 98.2
[2023-01-07] MEDS ORDERED: KETOROLAC 15 MG/ML 1 ML VIAL IVP STA (11:05)
[2023-01-07] MEDS ORDERED: HYDROmorphone 0.5 MG/0.5 ML SYRINGE IVP STA (11:05)
[2023-01-07] MEDS ORDERED: SODIUM CHLORIDE 0.9% 500 ML 500 ML IV STA (11:05)
--- NOTE | 2023-01-07 11:12 | ED ---
General Adult HPI - General Chief complaint: Abdominal Pain Stated complaint: Post Op Abd Pain Time Seen by Provider: 01/07/23 10:50 Source: patient, RN notes reviewed, old records reviewed Mode of arrival: ambulatory Limitations: no limitations - History of Present Illness Initial comments: This a 57-year-old female presents emergency Department complaining of left lower quadrant abdominal pain. Patient states she had a colectomy one month ago. Patient did the surgery. Patient states it's always been sore in that area and asked why she continues to wear the binder. Patient states couple days ago she rolled over in bed and also she had this sharp burning excruciating pain and left lower quadrant. Patient had a CAT scan and it did not show any cause for the pain except there was a small fat-containing umbilical hernia. Patient states she has no pain around the umbilicus. Patient states the pain is worse when she moves touches it and it's very hot poker-like pain. Patient denies any nausea vomiting. Patient denies any diarrhea or constipation. Patient denies any fever chills. - Related Data Home Medications Medication Instructions Recorded Confirmed Levothyroxine Sodium [Synthroid] 50 mcg PO DAILY 04/12/22 01/07/23 Omeprazole 40 mg PO DAILY 04/12/22 01/07/23 Citalopram Hydrobromide [CeleXA] 20 mg PO DAILY 07/19/22 01/07/23 Magnesium Oxide [Mag-Ox] 400 mg PO DAILY 01/07/23 01/07/23 Previous Rx's Medication Instructions Recorded Ibuprofen [Motrin] 600 mg PO Q8HR PRN #30 tab 12/12/22 Allergies Allergy/AdvReac Type Severity Reaction Status Date / Time hydrocodone [From Vicodin] AdvReac Nausea & Verified 01/07/23 12:31 Vomiting Review of Systems ROS Statement: Those systems with pertinent positive or pertinent negative responses have been documented in the HPI. ROS Other: All systems not noted in ROS Statement are negative. Past Medical History Past Medical History: GERD/Reflux, Osteoarthritis (OA), Pneumonia, Thyroid Disorder Additional Past Medical History / Comment(s): Diverticulitis , migraines, History of Any Multi-Drug Resistant Organisms: None Reported Past Surgical History: Cholecystectomy, Orthopedic Surgery, Uterine Ablation Additional Past Surgical History / Comment(s): left knee arthoscopy surgery Past Anesthesia/Blood Transfusion Reactions: No Reported Reaction Additional Past Anesthesia/Blood Transfusion Reaction / Comment(s): dad is very slow to wake post op Past Psychological History: Anxiety Smoking Status: Never smoker Past Alcohol Use History: None Reported Past Drug Use History: None Reported - Past Family History Father Family Medical History: Deep Vein Thrombosis (DVT) Mother Family Medical History: COPD General Exam - General Exam Comments Initial Comments: GENERAL: Patient is well-developed and well-nourished. Patient is nontoxic and well-hydr ated and is in mild distress. ENT: Neck is soft and supple. No significant lymphadenopathy is noted. Oropharynx is clear. Moist mucous membranes. Neck has full range of motion without eliciting any pain. EYES: The sclera were anicteric and conjunctiva were pink and moist. Extraocular movements were intact and pupils were equal round and reactive to light. Eyelids were unremarkable. PULMONARY: Unlabored respirations. Good breath sounds bilaterally. No audible rales rhonchi or wheezing was noted. CARDIOVASCULAR: There is a regular rate and rhythm without any murmurs gallops or rubs. ABDOMEN: Patient has significant left lower quadrant tenderness. SKIN: Skin is clear with no lesions or rashes and otherwise unremarkable. NEUROLOGIC: Patient is alert and oriented x3. Cranial nerves II through XII are grossly intact. Motor and sensory are also intact. Normal speech, volume and content. Symmetrical smile. MUSCULOSKELETAL: Normal extremities with adequate strength and full range of motion. LYMPHATICS: No significant lymphadenopathy is noted PSYCHIATRIC: Normal psychiatric evaluation. Limitations: no limitations Course Vital Signs 01/07/23 10:48 Temperature 98.2 F Pulse Rate 87 Respiratory 18 Rate Blood Pressure 137/87 O2 Sat by Pulse 97 Oximetry Medical Decision Making - Medical Decision Making Was pt. sent in by a medical professional or institution (, PA, MANAGING DIRECTOR ATLAS, urgent care, hospital, or senior care...) When possible be specific @ -No Did you speak to anyone other than the patient for history (EMS, parent, family, police, friend...)? What history was obtained from this source @ -No Did you review nursing and triage notes (agree or disagree)? Why? @ -I reviewed and agree with nursing and triage notes Were old charts reviewed (outside hosp., previous admission, EMS record, old EKG, old radiological studies, urgent care reports/EKG's, senior care records)? Report findings @ -I reviewed prior CT scans. I reviewed prior lab results Differential Diagnosis (chest pain, altered mental status, abdominal pain women, abdominal pain men, vaginal bleeding, weakness, fever, dyspnea, syncope, headache, dizziness, GI bleed, back pain, seizure, CVA, palpatations, mental health, musculoskeletal)? @ -Differential Abdominal Pain Women: Appendicitis, Cholecystitis, diverticulosis, ischemic bowel, pancreatitis, hepatitis, UTI, gastroenteritis, AAA, incarcerated hernia, bowel obstruction, constipation, inflammatory bowel, hepatitis, peptic ulcer disease, splenic infarction, perforated viscus, vulvitis, ovarian torsion, PID, kidney stone, placenta abruption, this is not meant to be an all-inclusive list EKG interpreted by me (3pts min.). @ -As above X-rays interpreted by me (1pt min.). @ -None done CT interpreted by me (1pt min.). @ -None done U/S interpreted by me (1pt. min.). @ -None done What testing was considered but not performed or refused? (CT, X-rays, U/S, labs)? Why? @ -I did consider rescanning the patient's abdomen and pelvis but patient had one in the last few days so I did not do. What meds were considered but not given or refused? Why? @ -None Did you discuss the management of the patient with other professionals (professionals i.e. , PA, MANAGING DIRECTOR ATLAS, lab, RT, psych nurse, licensed master social worker, resident in diagnostic radiology, teacher, medical officer psychiatry, skilled nursing case manager)? Give summary @ -I did not speak with anyone Was smoking cessation discussed for >3mins.? @ -No Was critical care preformed (if so, how long)? @ -No Were there social determinants of health that impacted care today? How? (Homelessness, low income, unemployed, alcoholism, drug addiction, tr ansportation, low edu. Level, literacy, decrease access to med. care, fci, rehab)? @ -No Was there de-escalation of care discussed even if they declined (Discuss DNR or withdrawal of care, Hospice)? DNR status @ -Was not discussed What co-morbidities impacted this encounter? (DM, HTN, Smoking, COPD, CAD, Cancer, CVA, ARF, Chemo, Hep., AIDS, mental health diagnosis, sleep apnea, morbid obesity)? @ -None Was patient admitted / discharged? Hospital course, mention meds given and rout e, prescriptions, significant lab abnormalities, going to OR and other pertinent info. @ -Patient was given Toradol and Dilaudid and she was feeling considerably better. Undiagnosed new problem with uncertain prognosis? @ -No Drug Therapy requiring intensive monitoring for toxicity (Heparin, Nitro, Insulin, Cardizem)? @ -No Were any procedures done? @ -No Diagnosis/symptom? @ -Post surgical abdominal pain Acute, or Chronic, or Acute on Chronic? @ -Acute on chronic Uncomplicated (without systemic symptoms) or Complicated (systemic symptoms)? @ -Uncomplicated Side effects of treatment? @ -No Exacerbation, Progression, or Severe Exacerbation? @ -No Poses a threat to life or bodily function? How? (Chest pain, [place], [place], pneumonia, PE, COPD, DKA, ARF, appy, cholecystitis, CVA, Diverticulitis, Homicidal, Suicidal, threat to staff... and all critical care pts) @ -No - Lab Data Result diagrams: 01/07/23 11:09 01/07/23 11:09 Lab Results 01/07/23 01/07/23 Range/Units 11:09 11:09 WBC 4.9 (3.8-10.6) k/uL RBC 4.61 (3.80-5.40) m/uL Hgb 13.7 (11.4-16.0) gm/dL Hct 41.4 (34.0-46.0) % MCV 89.8 (80.0-100.0) fL MCH 29.7 (25.0-35.0) pg MCHC 33.0 (31.0-37.0) g/dL RDW 13.4 (11.5-15.5) % Plt Count 272 (150-450) k/uL MPV 7.9 Neutrophils % 54 % Lymphocytes % 31 % Monocytes % 8 % Eosinophils % 4 % Basophils % 1 % Neutrophils # 2.7 (1.3-7.7) k/uL Lymphocytes # 1.6 (1.0-4.8) k/uL Monocytes # 0.4 (0-1.0) k/uL Eosinophils # 0.2 (0-0.7) k/uL Basophils # 0.0 (0-0.2) k/uL Sodium 137 (137-145) mmol/L Potassium 4.6 (3.5-5.1) mmol/L Chloride 103 (98-107) mmol/L Carbon Dioxide 28 (22-30) mmol/L Anion Gap 6 mmol/L BUN 10 (7-17) mg/dL Creatinine 0.76 (0.52-1.04) mg/dL Est GFR (CKD-EPI)AfAm >90 (>60 ml/min/1.73 sqM) Est GFR (CKD-EPI)NonAf 89 (>60 ml/min/1.73 sqM) Glucose 86 (74-99) mg/dL Calcium 9.5 (8.4-10.2) mg/dL Total Bilirubin 0.4 (0.2-1.3) mg/dL AST 20 (14-36) U/L ALT 20 (4-34) U/L Alkaline Phosphatase 109 (38-126) U/L Total Protein 7.8 (6.3-8.2) g/dL Albumin 4.2 (3.5-5.0) g/dL Lipase 219 (23-300) U/L Disposition Clinical Impression: Postoperative abdominal pain Disposition: HOME SELF-CARE Instructions (If sedation given, give patient instructions): Abdominal Pain (ED) Is patient prescribed a controlled substance at d/c from ED?: No Referrals: Amanda Gonzalez MD [Primary Care Provider] - 1-2 days Time of Disposition: 12:42
[2023-01-07 12:03] LABS: ALT 20 U/L (4-34); AST 20 U/L (14-36); African American GFR (CKD) >90 (>60 ml/min/1.73 sqM); Albumin 4.2 g/dL (3.5-5.0); Alkaline Phosphatase 109 U/L (38-126); Anion Gap 6 mmol/L; Blood Urea Nitrogen 10 mg/dL (7-17); Calcium 9.5 mg/dL (8.4-10.2); Carbon Dioxide 28 mmol/L (22-30); Chloride 103 mmol/L (98-107); Glucose 86 mg/dL (74-99); Lipase 219 U/L (23-300); Non-African American GFR(CKD) 89 (>60 ml/min/1.73 sqM); Potassium 4.6 mmol/L (3.5-5.1); Sodium 137 mmol/L (137-145); Total Bilirubin 0.4 mg/dL (0.2-1.3); Total Protein 7.8 g/dL (6.3-8.2)
[2023-01-07 12:10] LABS: Basophils % (A) 1 %; Eosinophils # (A) 0.2 k/uL (0-0.7); Eosinophils % (A) 4 %; HCT 41.4 % (34.0-46.0); HGB 13.7 gm/dL (11.4-16.0); Lymphocytes # (A) 1.6 k/uL (1.0-4.8); Lymphocytes % (A) 31 %; MCH 29.7 pg (25.0-35.0); MCV 89.8 fL (80.0-100.0); Mean Platelet Volume 7.9; Monocytes # (A) 0.4 k/uL (0-1.0); Monocytes % (A) 8 %; Neutrophils # (A) 2.7 k/uL (1.3-7.7); Neutrophils % (A) 54 %; Platelet Count 272 k/uL (150-450); RBC 4.61 m/uL (3.80-5.40); RDW 13.4 % (11.5-15.5); WBC 4.9 k/uL (3.8-10.6)
[2023-01-07] MEDS ORDERED: HYDROmorphone 0.5 MG/0.5 ML SYRINGE IM STA (12:32)
[2023-01-07] MEDS ORDERED: ACET/COD 300 MG/30 MG STARTER PACK 6 TAB BTL PO STA (12:42)
[2023-01-07] MEDS ORDERED: ONDANSETRON 4 MG ODT STARTER PACK 2 TAB BTL PO STA (12:42)
== END 2023-01-07 12:57 | disposition home or self-care (01) ==
LOC: EC 10:42
DX: G89.18 Other acute postprocedural pain (principal); R10.32 Left lower quadrant pain; K21.9 Gastro-esophageal reflux disease without esophagitis; M19.90 Unspecified osteoarthritis, unspecified site; E07.9 Disorder of thyroid, unspecified; F41.9 Anxiety disorder, unspecified; Z79.899 Other long term (current) drug therapy; Z79.1 Long term (current) use of non-steroidal anti-inflammatories (NSAID); Z88.5 Allergy status to narcotic agent
CPT/HCPCS: 36415; 80053; 83690; 85025; 99284; 96374; 96375; 96372; 96361; J1885; S0119; J1170

== ENCOUNTER → 2023-11-29 | Outpatient (CLI) | payer BC ==
[2023-11-29 11:46] LABS: Basophils # (A) 0.04 X 10*3/uL (0.00-0.10); Basophils % (A) 0.7 %; Eosinophils # (A) 0.19 X 10*3/uL (0.04-0.35); Eosinophils % (A) 3.4 %; HCT 41.7 % (37.2-46.3); HGB 13.3 g/dL (12.0-15.0); Lymphocytes % (A) 28.6 %; MCH 29.6 pg (27.0-32.0); MCHC 31.9 g/dL (32.0-37.0); MCV 92.9 FL (80.0-97.0); Mean Platelet Volume 9.9 FL (9.5-12.2); Monocytes # (A) 0.57 X 10*3/uL (0.20-1.00); Monocytes % (A) 10.2 %; NRBC Per 100 WBC 0 X 10*3/uL (0.00-0.01); Neutrophils # (A) 3.18 X 10*3/uL (1.80-7.70); Neutrophils % (A) 56.9 %; Platelet Count 359 X 10*3/uL (140-440); RBC 4.49 X 10*6/uL (4.10-5.20); RDW 14.5 % (11.5-14.5); WBC 5.59 X 10*3/uL (4.50-10.00)
[2023-11-29 12:21] LABS: ALT 21 U/L (8-44); AST 22 U/L (13-35); Albumin 4.1 g/dL (3.8-4.9); Albumin/Globulin Ratio 1.41 Ratio (1.60-3.17); Alkaline Phosphatase 73 U/L (41-126); BUN/Creat Ratio 9.33 Ratio (12.00-20.00); Blood Urea Nitrogen 8.4 mg/dL (9.0-27.0); Calcium 9.8 mg/dL (8.7-10.3); Carbon Dioxide 23.8 mmol/L (21.6-31.8); Chloride 104 mmol/L (96-109); Chol/HDL Ratio 3.27 Ratio; Globulin 2.9 g/dL (1.6-3.3); Glucose 118 mg/dL (70-110); LDL Cholesterol,Calculated 99.2 mg/dL (0.0-131.0); Potassium 4.8 mmol/L (3.5-5.5); Sodium 140 mmol/L (135-145); Total Bilirubin 0.3 mg/dL (0.3-1.2)
--- NOTE | 2023-11-30 10:28 | MM ---
Reason for Exam: Screening (asymptomatic). Last mammogram was performed 9 year(s) and 5 month(s) ago. Risk Values: Jodie 5 year model risk: 0.8%. NCI Lifetime model risk: 5.3%. Prior Study Comparison: 11/25/2009 Bilateral Screening Mammogram, Unknown. 03/12/2012 Bilateral Screening Mammogram, Unknown. 07/01/2014 Bilateral Screening Mammogram, Unknown. Tissue Density: The breast tissue is heterogeneously dense. This may lower the sensitivity of mammography. Findings: Analyzed By CAD. There is no suspicious group of microcalcifications or new suspicious mass in either breast. Overall Assessment: Negative, BI-RAD 1 Management: Screening Mammogram of both breasts in 1 year. . Patient should continue monthly self-breast exams. A clinical breast exam by your physician is recommended on an annual basis. This exam should not preclude additional follow-up of suspicious palpable abnormalities. Note on Jodie scores and lifetime risk: 1. A Jodie score greater than 3% is considered moderate risk. If this is the case, consider specialist referral to assess eligibility for a risk reducing agent. 2. If overall lifetime risk for the development of breast cancer is 20% or higher, the patient may qualify for future screening with alternating mammogram and breast MRI. Electronically signed and approved by: Josh Conklin M.D. Radiologis
== END | disposition home or self-care (01) ==
LOC: EDSEX → RADMAMWWP 06:51
PROVIDERS: ATTEND Internal Medicine
DX: Z12.31 Encounter for screening mammogram for malignant neoplasm of breast (principal); Z00.01 Encounter for general adult medical examination with abnormal findings; Z13.220 Encounter for screening for lipoid disorders; E03.9 Hypothyroidism, unspecified; E55.9 Vitamin D deficiency, unspecified
CPT/HCPCS: 77067; 80053; 80061; 82306; 84443; 85025

== ENCOUNTER 2024-02-27 04:21 | Emergency (ER) | payer BC ==
--- NOTE | 2024-02-27 04:57 | ED ---
Skin/Abscess/FB HPI - General Chief complaint: Skin/Abscess/Foreign Body Stated complaint: right pointer finger cut Time Seen by Provider: 02/27/24 04:24 Source: patient, RN notes reviewed, old records reviewed Mode of arrival: ambulatory Limitations: no limitations - History of Present Illness Initial comments: This is a 58-year-old female to the ER for evaluation of right index finger injury puncture wound to the right index finger which she did clean yesterday but the symptoms of swelling and redness have increased throughout the day and she is unable to sleep tonight secondary to severe pain. Patient is concerned for severe infection versus abscess of the finger versus compartment syndrome of the finger MD complaint: abscess/boil, foreign body, other (Puncture wound) -: days(s) Tetanus Up to Date: yes Severity scale (1-10): 3 Quality: stabbing, aching Improves with: none Worsens with: none Context: none Associated symptoms: denies other symptoms Treatments Prior to Arrival: none - Related Data Home Medications Medication Instructions Recorded Confirmed Levothyroxine Sodium [Synthroid] 50 mcg PO DAILY 04/12/22 01/07/23 Omeprazole 40 mg PO DAILY 04/12/22 01/07/23 Citalopram Hydrobromide [CeleXA] 20 mg PO DAILY 07/19/22 01/07/23 Magnesium Oxide [Mag-Ox] 400 mg PO DAILY 01/07/23 01/07/23 Previous Rx's Medication Instructions Recorded Ibuprofen [Motrin] 600 mg PO Q8HR PRN #30 tab 12/12/22 Amoxic-Pot Clav 875-125Mg 1 tab PO Q12HR #20 tablet 02/27/24 [Augmentin 875-125] Allergies Allergy/AdvReac Type Severity Reaction Status Date / Time hydrocodone [From Vicodin] AdvReac Nausea & Verified 02/27/24 04:25 Vomiting Review of Systems ROS Statement: Those systems with pertinent positive or pertinent negative responses have been documented in the HPI. ROS Other: All systems not noted in ROS Statement are negative. Past Medical History Past Medical History: GERD/Reflux, Osteoarthritis (OA), Pneumonia, Thyroid Disorder Additional Past Medical History / Comment(s): Diverticulitis , migraines, History of Any Multi-Drug Resistant Organisms: None Reported Past Surgical History: Cholecystectomy, Orthopedic Surgery, Uterine Ablation Additional Past Surgical History / Comment(s): left knee arthoscopy surgery Past Anesthesia/Blood Transfusion Reactions: No Reported Reaction Additional Past Anesthesia/Blood Transfusion Reaction / Comment(s): dad is very slow to wake post op Past Psychological History: Anxiety Smoking Status: Never smoker Past Alcohol Use History: None Reported Past Drug Use History: None Reported - Past Family History Father Family Medical History: Deep Vein Thrombosis (DVT) Mother Family Medical History: COPD General Exam Limitations: no limitations General appearance: alert, in no apparent distress Head exam: Present: atraumatic, normocephalic, normal inspection Eye exam: Present: normal appearance, PERRL, EOMI. Absent: scleral icterus, conjunctival injection, periorbital swelling ENT exam: Present: normal exam, mucous membranes moist Neck exam: Present: normal inspection. Absent: tenderness, meningismus, lymphadenopathy Respiratory exam: Present: normal lung sounds bilaterally. Absent: respiratory distress, wheezes, rales, rhonchi, stridor Cardiovascular Exam: Present: regular rate, normal rhythm, normal heart sounds. Absent: systolic murmur, diastolic murmur, rubs, gallop, clicks GI/Abdominal exam: Present: soft, normal bowel sounds. Absent: distended, tenderness, guarding, rebound, rigid Extremities exam: Present: normal inspection, full ROM, normal capillary refill. Absent: tenderness, pedal edema, joint swelling, calf tenderness Back exam: Present: normal inspection Neurological exam: Present: alert, oriented X3, CN II-XII intact Psychiatric exam: Present: normal affect, normal mood Skin exam: Present: warm, dry, intact, normal color. Absent: rash Course Vital Signs 02/27/24 02/27/24 04:22 06:05 Temperature 98.5 F 98.2 F Pulse Rate 85 76 Respiratory 18 16 Rate Blood Pressure 134/84 138/85 O2 Sat by Pulse 97 97 Oximetry - Reevaluation(s) Reevaluation #1: 02/27/24 04:56 Medical records reviewed Reevaluation #2: 02/27/24 04:56 Patient symptoms unchanged Reevaluation #3: 02/27/24 04:56 Patient informed of results and questions answered Reevaluation #4: Was pt. sent in by a medical professional or institution (, PA, PRINT BU[employer]ER, urgent care, hospital, or halfway...) When possible be specific @ -no Did you speak to anyone other than the patient for history (EMS, parent, family, police, friend...)? What history was obtained from this source @ -no Did you review nursing and triage notes (agree or disagree)? Why? @ -agree Are old charts reviewed (outside hosp., previous admission, EMS record, old EKG, old radiological studies, urgent care reports/EKG's, halfway records)? Report findings @ -yes Differential Diagnosis (chest pain, altered mental status, abdominal pain women, abdominal pain men, vaginal bleeding, weakness, fever, dyspnea, syncope, headache, dizziness, GI bleed, back pain, seizure, CVA, palpatations, mental health, musculoskeletal)? @ -prior EKG interpreted by me (3pts min.). @ -no X-rays interpreted by me (1pt min.). @ -no CT interpreted by me (1pt min.). @ -no U/S interpreted by me (1pt. min.). @ -no What testing was considered but not performed or refused? (CT, X-rays, U/S, labs)? Why? @ -none What meds were considered but not given or refused? Why? @ -none Did you discuss the management of the patient with other professionals (professionals i.e. , PA, PRINT BUYER, lab, RT, psych nurse, social media specialist, parachute repairer, teacher, chemical instrumentation officer, telehealth case manager)? Give summary @ -no Was smoking cessation discussed for >3mins.? @ -no Was critical care preformed (if so, how long)? @ -no Were there social determinants of health that impacted care today? How? (Homelessness, low income, unemployed, alcoholism, drug addiction, transportation, low edu. Level, literacy, decrease access to med. care, custodial, rehab)? @ -none Was there de-escalation of care discussed even if they declined (Discuss DNR or withdrawal of care, Hospice)? DNR status @ -no What co-morbidities impacted this encounter? (DM, HTN, Smoking, COPD, CAD, Cancer, CVA, ARF, Chemo, Hep., AIDS, mental health diagnosis, sleep apnea, morbid obesity)? @ -none Was patient admitted / discharged? Hospital course, mention meds given and route, prescriptions, significant lab abnormalities, going to OR and other pertinent info. @ - 58 female to ER for evaluation of right finger cellulitis and infection. Patient does not have symptoms of flexor tenosynovitis or compartment syndrome. Patient can be discharged home Discharge Undiagnosed new problem with uncertain prognosis? @ -no Drug Therapy requiring intensive monitoring for toxicity (Heparin, Nitro, Insulin, Cardizem)? @ -no Were any procedures done? @ -no Diagnosis/symptom? @ -Cellulitis and infection Acute, or Chronic, or Acute on Chronic? @ -Acute Uncomplicated (without systemic symptoms) or Complicated (systemic symptoms)? @ -Complicated Side effects of treatment? @ -no Exacerbation, Progression, or Severe Exacerbation? @ -exacerbation Poses a threat to life or bodily function? How? (Chest pain, [place], ID, pneumonia, PE, COPD, DKA, ARF, appy, cholecystitis, CVA, Diverticulitis, Homicidal, Suicidal, threat to staff... and all critical care pts) @ -yes Medical Decision Making - Medical Decision Making 58 female to ER for evaluation of right finger cellulitis and infection. Patient does not have symptoms of flexor tenosynovitis or compartment syndrome. Patient can be discharged home Disposition Clinical Impression: Cellulitis of index finger, Cellulitis of right index finger Disposition: HOME SELF-CARE Condition: Good Instructions (If sedation given, give patient instructions): Cellulitis (ED) Prescriptions: Amoxic-Pot Clav 875-125Mg [Augmentin 875-125] 1 tab PO Q12HR #20 tablet Is patient prescribed a controlled substance at d/c from ED?: No Referrals: Amanda Gonzalez MD [Primary Care Provider] - 1-2 days Pedro Ryan DO [Doctor of Osteopathic Medicine] - 1-2 days Time of Disposition: 04:55
[2024-02-27] MEDS: AMOXIC-POT CLAV 875MG STARTER PACK 2 TAB BTL PO STA (06:00)
[2024-02-27] MEDS: IBUPROFEN 800 MG TAB PO STA (06:01)
[2024-02-27] MEDS: AMOXIC-POT CLAV 875-125MG 1 EACH TAB PO STA (06:01)
[2024-02-27 06:43] VITALS: BP 138/85; PULSE 76; RESP 16; TEMP 98.2
== END 2024-02-27 06:07 | disposition home or self-care (01) ==
LOC: EC 04:21
DX: L03.011 Cellulitis of right finger (principal); Z88.5 Allergy status to narcotic agent
CPT/HCPCS: 99282